=== PATIENT | male | born 1945 | race Caucasian/White ===

== ENCOUNTER → 2016-12-08 | Outpatient (CLI) | payer SELFPAY ==
[2016-12-08 11:00] LABS: HEMOGLOBIN A1C 7.72 % (4.2-6.0); MEAN BLOOD GLUCOSE (CALC) 171.076 mg/dL
[2016-12-10 08:51] LABS: PSAFREE 2.2 ng/mL (()); PSATOTAL 7.5 ng/mL (<=6.5)
== END ==
LOC: MOB LAB 09:56
DX: E11.9 Type 2 diabetes mellitus without complications (principal); Z79.4 Long term (current) use of insulin; R97.20 Elevated prostate specific antigen [PSA]
CPT/HCPCS: 36415; 83036; 84153; 84154

== ENCOUNTER → 2017-04-10 | Outpatient (CLI) | payer SELFPAY ==
[2017-04-10 12:41] LABS: BUN/CREATININE RATIO 18.33 (6-20); CALCIUM 9.5 mg/dL (8.7-10.7)
[2017-04-10 12:42] LABS: HEMOGLOBIN A1C 8.29 % (4.2-6.0)
== END ==
LOC: MOB LAB 11:15
DX: E11.9 Type 2 diabetes mellitus without complications (principal); Z79.4 Long term (current) use of insulin; I10 Essential (primary) hypertension; R97.20 Elevated prostate specific antigen [PSA]
CPT/HCPCS: 36415; 80048; 83036; 84153

== ENCOUNTER 2017-05-04 15:37 | Observation (INO) | payer OTHER ==
[2017-05-04] MEDS ORDERED: NORMAL SALINE 10 ML SYRINGE FLUSH IVP PRN ×2 (16:14→20:04)
[2017-05-04 16:33] LABS: VENOUS PH 7.41 (7.32-7.42)
[2017-05-04] MEDS ORDERED: Rivaroxaban Tab 10 MG TAB PO ONE (19:27)
--- NOTE | 2017-05-04 19:37 | PDOC ---
Chest Pain HPI - General Chief Complaint: Chest Pain Stated Complaint: chest pain and dyspnea Date Seen by Provider: 05/04/17 Time Seen by Provider: 15:55 Source: Patient, RN/MD Exam Limitations: POSITIVE: No limitations Treatment Prior to Arrival: REPORTS: None Nurse's Notes Reviewed & Considered: Yes - History of Present Illness Initial Comments: The patient is a 74-year-old male. Patient complains of an approximately 24 hour history of dyspnea and pleuritic chest pain, mainly over the lower anterior thorax and the right subscapular area. He was seen initially today at the clinic. The physician seeing him there did a CBC, which was normal. He also performed a CMP which is normal except for glucose of 161. D-dimer was elevated at 4.04. BNP was elevated at 1480 and CRP was 26.4. Cardiac enzymes were normal. Electrocardiogram showed a Q-wave in lead 3 and a normal sinus rhythm. Chest x-ray was done, which I reviewed and, on my interpretation, the patient may have atelectasis versus infiltrate versus pulmonary infarction in the right lower lung. Patient was sent here for further evaluation and disposition. Past medical history is significant in that he had a deep vein thrombosis of the right leg in 2013 and was on Zarrella toe up until 22 April. The Xarelto was discontinued at that time because patient was scheduled for a prostate biopsy this coming Thursday. Patient states he had a myocardial infarction in 2012 and does have a history of type II diabetes mellitus, hypertension and hyperlipidemia. Body Location Affected: REPORTS: Chest Timing: REPORTS: Abrupt, Constant Duration: >24 hours (Approximately 24 hours) Severity: Moderate Persistent/Worse since (date): 05/03/17 Persistent/Worse since (time): 12:00 Context: REPORTS: Rest Quality: REPORTS: "Pain" (Pleuritic pain with inspiration) Radiation: REPORTS: None Associated Symptoms: REPORTS: Shortness of Breath, Palpitations Modifying Factors: improves with: Deep breathing (Exacerbated by inspiration) Similar Symptoms Previously: No Recently seen/treated/hospitalized: Yes (as above) Any Prior Injuries Related to Current Complaint?: No - Patient Home Medications Home Medications: Home Medications Hydrochlorothiazide 25 mg PO DAILY 05/23/15 Aspirin 81 mg PO DAILY #30 tab.chew 05/26/15 Tadalafil [Cialis] 5 mg PO DAILY #30 tablet 05/26/15 Cetirizine HCl 1 tab PO QD PRN #90 tab 10/25/15 Chlorthalidone 1 tab PO QD #90 tab 10/25/15 Gluc/MSM/C/[place] [Joint Support Complex Softgel] 3 cap PO QD #90 cap 10/25/15 Metformin HCl 1 tab PO BID #180 tab 10/25/15 Allopurinol 1 tab PO QD #90 tab 10/08/16 Fluticasone Propionate [Flonase Allergy Relief] 2 spr SHANTI DAILY PRN #1 spr 01/19 Lisinopril 1 tab PO QD #90 tab 10/08/16 Rivaroxaban [Xarelto] 2 tab PO QD #60 tab 02/05/17 Insulin Detemir [Levemir Flextouch] 28 unit SUBCUT QHS #5 unit 05/01/17 - Patient Allergies Allergies/Adverse Reactions: Allergies Allergy/AdvReac Type Severity Reaction Status Date / Time No Known Allergies Allergy Verified 05/04/17 15:57 Past Medical History - heen HEENT History: Other (please comment) Additional HEENT History: WEARS GLASSES Cardiovascular History: Hypertension, Hyperlipidemia Respiratory History: Sleep Apnea, Home CPAP Use Gastrointestinal History: Denies History Genitourinary History: Incontinence Endocrine History: Type 2 Diabetes (oral), Type 2 Diabetes (insulin) Musculoskeletal History: Other (please comment) 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) Additional Musculoskeletal History: LEFT ANKLE FRACTURE Neurological History: Denies History Blood Disorders: Denies History Additional Blood Disorders History: DVT 2013 Psychiatric History: Denies History History of Sexually Transmitted Diseases: No Cancer History: Denies History In Past Year Been Physically Harmed or Verbally Threatened: No History of MDRO: Yes History of Other Communicable Diseases: No Tobacco Use: Former Smoker Alcohol Use: None Substance Use Type: None Previous Surgical History: Yes Type / Date of Surgery: NASAL TURBINATE REMOVAL, RIGHT TESTICULAR HERNIA WITH MESH REPAIR, HEART CATH WITHOUT STENTING Anesthesia Reactions: No Malignant Hyperthermia: No Significant Family History: No pertinent family hx Past Medical History Reviewed: Reviewed - No Changes ROS - Limitations ROS Limitations: No Limitations Constitution: REPORTS: Denies Symptoms Cardiovascular: REPORTS: Chest Pain (Pleuritic as above) Respiratory: REPORTS: Hurts To Breathe, Shortness Of Breath Neurological: REPORTS: Denies Neuro Symptoms Gastrointestinal: REPORTS: Denies GI Symptoms Endocrine: REPORTS: Denies Symptoms Musculoskeletal: REPORTS: Denies MS Symptoms Genitourinary: REPORTS: Denies Symptoms Eyes: REPORTS: Denies Symptoms ENT: REPORTS: Denies Symptoms Skin: REPORTS: Denies Skin Symptoms Lympathic: REPORTS: Denies Lympathic Symptoms Immunologic: POSITIVE: Denies Symptoms Psychiatric: POSITIVE: Denies Psych Symptoms Chest Pain PE - General Appearance General Appearance: REPORTS: Alert, Cooperative, No Acute Distress, No Evidence of Trauma - HEENT HEENT: POSITIVE: Head Inspection Nml, Eyes Inspection Nml, Ears Inspection Nml, Nose Inspection Nml, Oral/Dental Inspect. Nml, Pharynx Inspect. Nml, PERRL, EOMI - Neck Neck: REPORTS: Normal Inspection, No Carotid Bruit - Respiratory Respiratory: REPORTS: Breath Sounds Normal, See Diagram, Other (Pain with inspiration) - Cardiovascular Cardiovascular: REPORTS: Regular Rate and Rhythm, Heart Sounds Normal, Equal Pulses, Strong Pulses, No Murmur, No Gallop, No Friction Rub, No JVD Peripheral Pulses: Radial (R): 2+, Radial (L): 2+ - Abdomen Abdomen: Soft: (All Quadrants), Normal Bowel Sounds: (All Quadrants), Denies Tenderness: (All Quadrants), No Splenomegaly: (All Quadrants), No Hepatomegaly: (All Quadrants), No Guarding: (All Quadrants), No Rebound: (All Quadrants), No Palpable Pulse: (All Quadrants), No Palpabale Mass: (All Quadrants), No Distention: (All Quadrants), No Rigidity: (All Quadrants) - Skin Skin: REPORTS: Intact, Normal For Race, Warm, Dry, No Rash - Extremities Extremity: Non-Tender: (All Extremities), Normal ROM: (All Extremities), Normal Inspection: (All Extremities) - Neurological / Psychological Neurological: POSITIVE: 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, 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, 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 As Tested, Motor Normal, Sensation Normal Images - Complete Complete: 1 - Area of pleuritic pain 2 - Pleuritic pain Chest Pain Progress - Results Reviewed by me Xrays/CTs/US Reviewed by me: Yes Discussed with Radiologist: Yes Radiology Findings: CTA of chest read by radiologist as showing multiple bilateral pulmonary emboli Lab Results Reviewed: Yes (repeat troponin negative) Lab Results:: Laboratory Results 05/04/17 05/04/17 Range/Units 16:27 16:30 VBG pH 7.41 (7.32-7.42) VBG pCO2 38 L (45-55) mmHg VBG HCO3 24 (22-26) mmol/L VBG Base Excess 0 (-2-2) MMOL/L Lactic Acid 1.2 (0.70-2.10) MMOL/L Troponin I < 0.012 (< 0.040) ng/mL EKG Interpreted/Reviewed By Me:: Yes (Q-wave in lead 3) EKG Interpretation:: POSITIVE: Normal Sinus Rhythm, Normal Rate, Normal Intervals, Normal [place], Normal ST/T. NEGATIVE: Normal QRS (Q-wave in lead 3) - Patient's Progress Pain Medication Addressed: POSITIVE: Yes (Ketorolac 30 mg IV) School/Work Release Addressed: POSITIVE: Not Applicable Re-Examine Time: 19:10 Re-Examine Comment: Diagnosis discussed with hospitalist, Dr. Arora Status: POSITIVE: Unchanged, Re-Examined Quality Measure Initiative: CP/AMI: POSITIVE: EKG, ASA - Consult Consult (If Yes, Name of Consulting MD & Time Called): Yes (Dr. Arora, hospitalist, 1924) Consulting MD will see pt:: POSITIVE: [facility] Admit Counseled: POSITIVE: Patient, RE: Lab Results, RE: Radiology Results, RE: DX, RE : Need for F/U Patient Care Time - Estimated PCT Patient Care Time (In Minutes): 60 Vital Signs - Recent Vital Signs Vital Signs: Vital Signs (Last 8 hours) Temp Pulse Pulse Resp BP Pulse Ox 05/04/17 15:58 97.7 F 73 24 136/77 93 05/04/17 15:37 89 - VS Reviewed Vital Signs Reviewed: Yes Discharge Clinical Impression: Pulmonary embolism Discharge Disposition: Admit to Inpatient Date Decision to Admit to Inpatient: 05/04/17 Time Decision to Admit to Inpatient: 19:25
[2017-05-04] MEDS ORDERED: BISACODYL 10 MG SUPPOSITORY RECTAL PRN (20:04)
[2017-05-04] MEDS ORDERED: LIDOCAINE W/ SODIUM BICARB 0.5 ML SYR SUBD PRN (20:04)
[2017-05-04] MEDS ORDERED: ONDANSETRON 4 MG/2 ML VIAL IVP PRN (20:04)
[2017-05-04] MEDS: Insulin Detemir 300unit/3ml Flexpen SUBCUT SCH (21:51)
[2017-05-04] MEDS: Rivaroxaban Tab 10 MG TAB PO SCH (22:42)
--- NOTE | 2017-05-05 01:10 | PDOC ---
History and Physical - History of Present Illness History of Present Illness: This very nice 74-year-old gentleman who comes to the ER complaining of the 24- hour history of chest pain pleuritic and pleuritic chest pain especially when he takes a deep breath. He was seen earlier in the clinic and had some mild blood work done on the outpatient clinic in his d-dimer was elevated at that time he also has a history of DVT in the right lower extremity in 2013 and was on xarelto until March the patient was scheduled for prostate biopsy this coming Thursday. Thursday [place] in 2012 and has a history of diabetes hypertension and high cholesterol CT scan reveals pulmonary emboli patient will be admitted for further evaluation and monitoring he was also started on his previous anticoagulation med Past Medical History Medical History: 1. Diabetes mellitus type II, no known complications2. Hypertension3. Hypercholesterolemia4. Osteoarthritis, primarily in the knees5. Morbid obesity with body mass index greater than 40 kg permeter squared6. History of DVT in June,7. History of tobacco abuse.8. Colon Polyps in 2011, Surgical History: 1. Colonoscopy as mentioned2. Ruptured hernia on the left side (groin) with repair when he was young3. Nasal turbinates surgery Pertinent Family History: Negative for DVT and coronary artery disease and testicular cancer Past Social History: Smoked until age 33. for 35 years. Has 9 children. 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 Does not drink. Tobacco Use: Former Smoker Substance Use Type: None Medication / Allergies Home Medications: Home Medications Medication Instructions Recorded Confirmed Type Hydrochlorothiazide 25 mg PO DAILY 05/23/15 06/13/15 History Aspirin 81 mg PO DAILY #30 tab.chew 05/26/15 06/13/15 Rx Tadalafil [Cialis] 5 mg PO DAILY #30 tablet 05/26/15 06/13/15 Rx Cetirizine HCl 1 tab PO QD PRN #90 tab 10/25/15 Clinic Chlorthalidone 1 tab PO QD #90 tab 10/25/15 Clinic Gluc/MSM/C/[place] 3 cap PO QD #90 cap 10/25/15 Clinic [Joint Support Complex Softgel] Metformin HCl 1 tab PO BID #180 tab 10/25/15 Clinic Allopurinol 1 tab PO QD #90 tab 10/08/16 Clinic Fluticasone Propionate [Flonase 2 spr SHANTI DAILY PRN #1 spr 10/08/16 Clinic Allergy Relief] Lisinopril 1 tab PO QD #90 tab 10/08/16 [facility] Rivaroxaban [Xarelto] 2 tab PO QD #60 tab 02/05/17 [facility] Insulin Detemir [Levemir Flextouch] 28 unit SUBCUT QHS #5 unit 05/01/17 [facility] Allergies/Adverse Reactions: Allergies Allergy/AdvReac Type Severity Reaction Status Date / Time No Known Allergies Allergy Verified 05/04/17 15:57 Review of Systems - Review of Systems All Systems: Reviewed & No Additional Complaints Except as Stated - Respiratory Respiratory: REPORTS: Cough, Pleuritic Pain - Cardiovascular Cardiovascular: REPORTS: Chest Pain - Gastrointestinal Gastrointestinal / Abdominal: DENIES: Negative System Review, Nausea, Vomiting, Diarrhea, Constipation, Abdominal Pain, Bloody Stool, Poor Appetite, Heartburn, Regurgitation, Bloating, Lactose Intolerance, Melena, Bright Red Blood Per Rectum, Other, See HPI Exam - Vitals Vital Signs: Vital Signs Temperature 97.2 F Temperature Source Temporal Artery Scan Pulse Rate [Pulse Oximeter] 87 Pulse Rate 96 Respiratory Rate 18 Blood Pressure [Right Arm] 172/90 Pulse Ox 96 Oxygen Flow Rate 3 Oxygen Delivery Method Nasal Cannula Height 6 ft Weight 140.784 kg - General General Appearance: POSITIVE: No Acute Distress, Cooperative - Head Head Exam: POSITIVE: Normal Inspection, Normocephalic, Atraumatic - Eye Eye Exam: POSITIVE: Normal Appearance - Neck Neck Exam: POSITIVE: Normal Inspection - Respiratory Respiratory Exam: POSITIVE: Clear to Auscultation - Bilaterally, Breathing Non Labored - Cardiovascular Cardiovascular Exam: POSITIVE: RRR, No Murmur, No Clicks - GI/Abdominal GI/Abdominal Exam: POSITIVE: Normal Bowel Sounds, Non Distended, Soft - Extremities Extremities Exam: POSITIVE: No Clubbing Present, No Edema Present - Neurological Neurological Exam: POSITIVE: Alert, Oriented x 3, No Facial Droop, Speech Intact / Clear Results - Labs Labs - Last 24 Hours: Laboratory Results 05/04/17 Range/Units 20:15 Troponin I < 0.012 (< 0.040) ng/mL Assessment and Plan - Patient Problems (1) Pulmonary emboli Current Visit: Yes Status: Acute (2) Coronary artery disease Current Visit: No Status: Acute (3) History of DVT (deep vein thrombosis) Current Visit: No Status: Acute - Assessment / Plan Additional Assessment/Plan Details: Admit patient to telemetry restart xarelto echo in a.m.
[2017-05-05] MEDS: BISACODYL 5 MG TABLET PO PRN ×2 (02:23→14:12)
--- NOTE | 2017-05-05 06:32 | DI ---
CT CTA CHEST NONCORONARY W/WO,05/04/2017 4:11 PM: Clinical History: Chest pain and elevated d-dimer. Previous Exam: June 23, 2014 Findings: Multiple helically acquired CT images are obtained through the chest following a CT angiogram protoco l, and demonstrate a filling defect within the lower lobe artery. There is also some filling defect i nvolving the upper lobe artery on the right. There are also some filling defects within the left lowe r pulmonary arteries. There is a density in the right lung base worrisome for an infarct. There is al so a right pleural effusion. The upper abdomen is unremarkable. Diffuse degenerative changes of the thoracic spine are seen. Mild peripheral vascular disease of the aorta is unremarkable. Impression: Multiple bilateral pulmonary emboli.
[2017-05-05] MEDS: metFORMIN 500 MG TABLET PO SCH ×2 (07:09→17:34)
[2017-05-05] MEDS: LISINOPRIL 20 MG TABLET PO SCH (08:26)
[2017-05-05] MEDS: ALLOPURINOL 300 MG TABLET PO SCH (08:27)
[2017-05-05] MEDS: Rivaroxaban Tab 10 MG TAB PO SCH ×2 (08:27→21:43)
[2017-05-05] MEDS: CHLORTHALIDONE 50 MG TABLET PO SCH (08:28)
[2017-05-05] MEDS: ASPIRIN 81 MG (BABY) CHEWABLE TABLET PO SCH (08:28)
[2017-05-05] MEDS ORDERED: HYDROCHLOROTHIAZIDE 25 MG TABLET PO SCH (09:00)
[2017-05-05 09:47] LABS: BUN/CREATININE RATIO 18.18 (6-20); CALCIUM 8.7 mg/dL (8.7-10.7); SERUM ALBUMIN 3.2 g/dL (3.5-4.8)
[2017-05-05 09:51] LABS: BASOPHILS # (AUTO) 0.02 10*3/UL; BASOPHILS % (AUTO) 0.2 % (0-1); EOSINOPHILS # (AUTO) 0.04 10*3/UL; EOSINOPHILS % (AUTO) 0.4 % (0-8); HEMATOCRIT 39.5 % (42.0-52.0); HEMOGLOBIN 13.2 g/dL (14.0-18.0); LYMPHOCYTES # (AUTO) 0.47 10*3/uL; MEAN CORPUSCULAR HEMOGLOBIN 26.9 PG (27-31); MEAN CORPUSCULAR HGB CONC 33.4 g/dL (33-37); MEAN CORPUSCULAR VOLUME 80.6 FL (80-90); MEAN PLATELET VOLUME 10.3 FL (7.4-12.2); MONOCYTES # (AUTO) 0.97 10*3/UL (0.3-0.8); MONOCYTES % (AUTO) 10.2 % (5-15); NEUTROPHILS # (AUTO) 7.96 10*3/UL; NEUTROPHILS % (AUTO) 83.9 % (50-80); PLATELET MORPHOLOGY COMMENT NORMAL MORPHOLOGY (NORM); RBC MORPHOLOGY COMMENT NORMAL MORPHOLOGY (NORM); WBC MORPHOLOGY COMMENT NORMAL MORPHOLOGY (NORM)
--- NOTE | 2017-05-05 09:57 | DI ---
US UP/LOW EXTREMITY VEINS B/L,05/05/2017 8:20 AM: Clinical History: The deep venous thrombosis. Previous Exam: None at this facility. Findings: Evaluation of the left lower extremity demonstrates complete coaptation upon graded compression throu ghout the left lower extremity deep veins. There is no echogenic thrombus within the left lower extremity. The right lower extremity demonstrates noncompressibility of the right common femoral, right superfic ial femoral and right popliteal veins with some persisting flow. The greater saphenous vein demonstra vj complete coaptation throughout. Impression: Incompletely occlusive thrombus of the right common femoral, superficial femoral and popliteal veins.
[2017-05-05] MEDS: oxyCODONE-ACETAMINOPHEN 5-325 TAB PO PRN ×4 (11:15→21:52)
--- NOTE | 2017-05-05 16:16 | PT.PROG ---
Progress Note Progress Note: Nursing consulted with Dr. Rizvi about applying compression stockings between 20 and 30 mmHg due to therapy not carrying 30-[address] Rizvi did not accept 20- 30 mmHg stocking, therefore discussed with patient option of ordering stockings himself to decrease financial burden. then Measured patient to find size for stocking to order.
[2017-05-05] MEDS: Sodium Chloride 0.9% 1,000 ML IV SCH (18:20)
[2017-05-05] MEDS ORDERED: Sodium Chloride 0.9% 1,000 ML ONE (18:37)
[2017-05-05 20:33] VITALS: RESP 20
[2017-05-05] MEDS: Insulin Detemir 300unit/3ml Flexpen SUBCUT SCH (21:43)
[2017-05-06] MEDS: oxyCODONE-ACETAMINOPHEN 5-325 TAB PO PRN ×2 (01:00→05:15)
[2017-05-06 05:22] LABS: BUN/CREATININE RATIO 20.9 (6-20); CALCIUM 8.9 mg/dL (8.7-10.7); SERUM ALBUMIN 3.1 g/dL (3.5-4.8)
[2017-05-06] MEDS: metFORMIN 500 MG TABLET PO SCH (06:25)
[2017-05-06 08:14] VITALS: TEMP 97
[2017-05-06] MEDS: Rivaroxaban Tab 10 MG TAB PO SCH (08:45)
[2017-05-06] MEDS: ALLOPURINOL 300 MG TABLET PO SCH (08:46)
[2017-05-06] MEDS: CHLORTHALIDONE 50 MG TABLET PO SCH (08:46)
[2017-05-06] MEDS: ASPIRIN 81 MG (BABY) CHEWABLE TABLET PO SCH (08:46)
[2017-05-06] MEDS: LISINOPRIL 20 MG TABLET PO SCH (08:46)
[2017-05-06] MEDS: Sodium Chloride 0.9% 1,000 ML IV SCH (11:52)
--- NOTE | 2017-05-06 12:50 | DCSUMMARY ---
Hospitalization Summary Hospital Course: Final Discharge Diagnosis: Current Visit Problems Problem Status Priority Diagnosed Code Pulmonary emboli Acute I26.99 dvt Diagnostic Data, Laboratory Data, and Procedures of Signifigance: Laboratory Results 05/04/17 05/04/17 05/04/17 Range/Units 16:27 16:30 20:15 WBC (4.8-10.8) 10^3/uL RBC (4.70-6.10) 10^6/uL Hgb (14.0-18.0) g/dL Hct (42.0-52.0) % MCV (80-90) FL MCH (27-31) PG MCHC (33-37) g/dL RDW Std Deviation (39-50) fL RDW Coeff of [place] (11.5-14.5) % Plt Count (140-350) 10*3/uL MPV (7.4-12.2) FL Immature Gran % (Auto) (0-5) % Neut % (Auto) (50-80) % Lymph % (Auto) (10-50) % [place] % (Auto) (5-15) % Eos % (Auto) (0-8) % Baso % (Auto) (0-1) % Immature Gran # (Auto) 10*3/UL Neut # (Auto) 10*3/UL Lymph # (Auto) 10*3/uL [place] # (Auto) (0.3-0.8) 10*3/UL Eos # (Auto) 10*3/UL Baso # (Auto) 10*3/UL WBC Morphology Comment (NORM) Plt Morphology Comment (NORM) RBC Morph Comment (NORM) VBG pH 7.41 (7.32-7.42) VBG pCO2 38 L (45-55) mmHg VBG HCO3 24 (22-26) mmol/L VBG Base Excess 0 (-2-2) MMOL/L Sodium (135-145) meq/L Potassium (3.8-5.2) meq/L Chloride (98-112) meq/L Carbon Dioxide (23-33) meq/L Anion Gap (5-20) BUN (7-22) mg/dL Creatinine (0.70-1.50) mg/dL Estimated GFR (>60 ml/min/1.73m(2)) BUN/Creatinine Ratio (6-20) Glucose (78-110) mg/dL Calculated Osmolality (267-292) mOsm/kg Lactic Acid 1.2 (0.70-2.10) MMOL/L Calcium (8.7-10.7) mg/dL Magnesium (1.6-2.4) mg/dL Total Bilirubin (0.3-1.2) mg/dL AST (21-57) IU/L ALT (21-72) IU/L Alkaline Phosphatase (38-126) IU/L Troponin I < 0.012 < 0.012 (< 0.040) ng/mL Total Protein (6.1-8.0) g/dL Albumin (3.5-4.8) g/dL Globulin (2.50-4.10) g/dL Albumin/Globulin Ratio (1.3-2.0) mg/g 05/05/17 05/06/17 Range/Units 09:25 04:13 WBC 9.49 (4.8-10.8) 10^3/uL RBC 4.90 (4.70-6.10) 10^6/uL Hgb 13.2 L (14.0-18.0) g/dL Hct 39.5 L (42.0-52.0) % MCV 80.6 (80-90) FL MCH 26.9 L (27-31) PG MCHC 33.4 (33-37) g/dL RDW Std Deviation 41.7 (39-50) fL RDW Coeff of [place] 14.3 (11.5-14.5) % Plt Count 267 (140-350) 10*3/uL MPV 10.3 (7.4-12.2) FL Immature Gran % (Auto) 0.3 (0-5) % Neut % (Auto) 83.9 H (50-80) % Lymph % (Auto) 5.0 L (10-50) % [place] % (Auto) 10.2 (5-15) % Eos % (Auto) 0.4 (0-8) % Baso % (Auto) 0.2 (0-1) % Immature Gran # (Auto) 0.03 10*3/UL Neut # (Auto) 7.96 10*3/UL Lymph # (Auto) 0.47 10*3/uL [place] # (Auto) 0.97 H (0.3-0.8) 10*3/UL Eos # (Auto) 0.04 10*3/UL Baso # (Auto) 0.02 10*3/UL WBC Morphology Comment Normal morphology (NORM) Plt Morphology Comment Normal morphology (NORM) RBC Morph Comment Normal morphology (NORM) VBG pH (7.32-7.42) VBG pCO2 (45-55) mmHg VBG HCO3 (22-26) mmol/L VBG Base Excess (-2-2) MMOL/L Sodium 129 L 129 L (135-145) meq/L Potassium 4.3 3.9 (3.8-5.2) meq/L Chloride 98 98 (98-112) meq/L Carbon Dioxide 22 L 22 L (23-33) meq/L Anion Gap 9 9 (5-20) BUN 20 23 H (7-22) mg/dL Creatinine 1.1 1.1 (0.70-1.50) mg/dL Estimated GFR (>60 ml/min/1.73m(2)) BUN/Creatinine Ratio 18.18 20.90 H (6-20) Glucose 214 H 140 H (78-110) mg/dL Calculated Osmolality 276.0 273.0 (267-292) mOsm/kg Lactic Acid (0.70-2.10) MMOL/L Calcium 8.7 8.9 (8.7-10.7) mg/dL Magnesium 2.0 (1.6-2.4) mg/dL Total Bilirubin 1.1 0.7 (0.3-1.2) mg/dL AST 40 32 (21-57) IU/L ALT 47 55 (21-72) IU/L Alkaline Phosphatase 114 116 (38-126) IU/L Troponin I (< 0.040) ng/mL Total Protein 6.6 6.5 (6.1-8.0) g/dL Albumin 3.2 L 3.1 L (3.5-4.8) g/dL Globulin 3.4 3.4 (2.50-4.10) g/dL Albumin/Globulin Ratio 0.90 L 0.90 L (1.3-2.0) mg/g History and Physical pertinent to Admission: Course of Hospitalization: This very nice 72-year-old gentleman with past medical history significant for diabetes and previous DVT patient is been on the anticoagulation which she has stopped this some weeks prior secondary to prostate biopsy next week he had sudden shortness of breath and was seen in the ER CT scan of his chest the revealed bilateral pulmonary emboli and lower extremity ultrasound revealed lower extremity DVT. I did discuss the case with interventional radiology Dr. Lewis which recommended compression stockings between 30 and 40 mmHg knee-high and that no need to do local anticoagulation to break up the clot On the date of discharge, the patient was examined: Gen.: No acute distress, alert, nontoxic Heart: Regular rate and rhythm, no murmurs, clicks, gallops, or rubs Lungs: Clear to auscultation bilaterally, breathing is nonlabored Abdomen/GI: Normal tones on auscultation, soft, nontender, nondistended Musculoskeletal/extremities: No clubbing, cyanosis, or edema Vitals reviewed and are listed below Vital Signs (24 hrs) Temp Pulse Pulse Resp BP Pulse Ox 05/06/17 08:13 97 F 61 20 126/68 94 05/06/17 04:07 97.7 F 70 20 120/64 92 05/06/17 01:00 76 20 146/76 94 05/05/17 20:32 97.4 F 76 20 134/73 95 05/05/17 19:00 75 76 05/05/17 16:24 97.2 F 64 19 132/91 96 05/05/17 15:00 70 Assessment and Plan: 1. As per discharge assessments above 2. Disposition: Home 3. Condition on discharge, stable and improved. 4. Diet: regular diet 5. Activities: resume normal activities 6. Follow-Up: 1. PCP follow-up with Dr. Arita I did discuss the case with him 2. 7. Medications at the Time of Discharge: Home Medications Medication Instructions Recorded Confirmed Type Hydrochlorothiazide 25 mg PO DAILY 05/23/15 06/13/15 History Aspirin 81 mg PO DAILY #30 tab.chew 05/26/15 06/13/15 Rx Tadalafil [Cialis] 5 mg PO DAILY #30 tablet 05/26/15 06/13/15 Rx Cetirizine HCl 1 tab PO QD PRN #90 tab 10/25/15 Clinic Chlorthalidone 1 tab PO QD #90 tab 10/25/15 Clinic Gluc/MSM/C/[place] 3 cap PO QD #90 cap 10/25/15 Clinic [Joint Support Complex Softgel] Metformin HCl 1 tab PO BID #180 tab 10/25/15 Clinic Allopurinol 1 tab PO QD #90 tab 10/08/16 Clinic Fluticasone Propionate [Flonase 2 spr SHANTI DAILY PRN #1 spr 10/08/16 Clinic Allergy Relief] Lisinopril 1 tab PO QD #90 tab 10/08/16 Clinic Rivaroxaban [Xarelto] 2 tab PO QD #60 tab 02/05/17 Clinic Insulin Detemir [Levemir Flextouch] 28 unit SUBCUT QHS #5 unit 05/01/17 Clinic 8. Time, care, counseling and coordination of care for this discharge is greater than 30 minutes. Exam - Vitals Vital Signs: Vital Signs Temperature 97 F Temperature Source Temporal Artery Scan Pulse Rate [Pulse Oximeter] 61 Pulse Rate 75 Respiratory Rate 20 Blood Pressure [Right Arm] 126/68 Pulse Ox 94 Oxygen Flow Rate 1 Oxygen Delivery Method Room Air Height 6 ft Weight 139.111 kg Patient Problems - Patient Problem List (1) Pulmonary emboli Current Visit: Yes Status: Acute (2) Coronary artery disease Current Visit: No Status: Acute (3) History of DVT (deep vein thrombosis) Current Visit: No Status: Acute
== END 2017-05-06 12:58 | disposition home or self-care (01) ==
LOC: ER 15:37 → MED/SURG 19:23
PROVIDERS: ADMIT Family Medicine; ATTEND Internal Medicine
DX: I26.99 Other pulmonary embolism without acute cor pulmonale (principal); I25.10 Atherosclerotic heart disease of native coronary artery without angina pectoris; Z86.718 Personal history of other venous thrombosis and embolism
CPT/HCPCS: 36415 ×4; 71275; 80053 ×2; 82803; 83605; 83735; 84484; 85025; 87040; 93970; 97761; 99284 ×2; J1815; J7030

== ENCOUNTER → 2017-05-04 | Outpatient (CLI) | payer OTHER ==
--- NOTE | 2017-05-04 14:46 | EKG ---
[address] [address] Measurements Intervals [place] Rate: 89 P: 38 MA: 170 QRS: 63 QRSD: 106 T: 55 QT: 393 QTc: 439 Interpretive Statements SINUS RHYTHM WITH FREQUENT VENTRICULAR PREMATURE COMPLEXES POSSIBLE INFERIOR MYOCARDIAL INFARCTION PROBABLY OLD ABNORMAL RHYTHM ECG Compared to ECG 05/24/2015 07:51:40 Ventricular premature complex(es) now present Myocardial infarct finding still present Electronically Signed On 05-04-17 15:08:04 MDT by Remy Segura [email or web address]
[2017-05-04 15:01] LABS: BUN/CREATININE RATIO 14.16 (6-20); CALCIUM 9.1 mg/dL (8.7-10.7)
[2017-05-04 15:02] LABS: SERUM ALBUMIN 3.7 g/dL (3.5-4.8)
[2017-05-04 15:15] LABS: CREATINE KINASE MB < 0.22 NG/ML (0.00-5.00); TROPONIN I < 0.012 ng/mL (< 0.040)
[2017-05-04 15:32] LABS: BASOPHILS % (AUTO) 0.4 % (0-1); EOSINOPHILS % (AUTO) 0 % (0-8); HEMATOCRIT 43.8 % (42.0-52.0); HEMOGLOBIN 14.4 g/dL (14.0-18.0); MEAN CORPUSCULAR HEMOGLOBIN 26.4 PG (27-31); MEAN CORPUSCULAR HGB CONC 32.9 g/dL (33-37); MEAN CORPUSCULAR VOLUME 80.4 FL (80-90); MEAN PLATELET VOLUME 10.4 FL (7.4-12.2); MONOCYTES % (AUTO) 12.1 % (5-15); NEUTROPHILS % (AUTO) 77.4 % (50-80); RED BLOOD COUNT 5.45 10^6/uL (4.70-6.10)
[2017-05-04 15:33] LABS: BASOPHILS # (AUTO) 0.04 10*3/UL; EOSINOPHILS # (AUTO) 0 10*3/UL; LYMPHOCYTES # (AUTO) 0.93 10*3/uL; MONOCYTES # (AUTO) 1.31 10*3/UL (0.3-0.8); NEUTROPHILS # (AUTO) 7.88 10*3/UL; PLATELET MORPHOLOGY COMMENT NORMAL MORPHOLOGY (NORM); RBC MORPHOLOGY COMMENT NORMAL MORPHOLOGY (NORM); WBC MORPHOLOGY COMMENT NORMAL MORPHOLOGY (NORM)
[2017-05-04 15:41] LABS: C-REACTIVE PROTEIN 26.4 mg/dL (0.0-0.9)
--- NOTE | 2017-05-05 06:32 | DI ---
XR CXR 2VW PA/LAT,05/04/2017 2:15 PM: Clinical History: Shortness of breath Previous Exam: May 25, 2015 Findings: A single frontal radiograph of the chest is obtained, and demonstrates density within the right lung base with some blunting of the right costophrenic angle. The cardiomediastinum and bony thorax are unremarkable and stable. Impression: New density within the right lower lobe most likely representing a right lower lobe pneumonia and sma ll right pleural effusion. Recommend followup imaging after treatment to document resolution.
== END ==
LOC: MOB LAB 14:20
PROVIDERS: ATTEND Physician Assistant
DX: R07.81 Pleurodynia (principal); R06.02 Shortness of breath; I10 Essential (primary) hypertension; J18.9 Pneumonia, unspecified organism; J90 Pleural effusion, not elsewhere classified; R79.89 Other specified abnormal findings of blood chemistry
CPT/HCPCS: 36415; 71020; 80053; 82553; 83880; 84484; 85025; 85379; 86140; 93005; 93010

== ENCOUNTER 2017-05-26 18:38 | Emergency (ER) | payer OTHER ==
[2017-05-26] MEDS ORDERED: MORPHINE SULFATE 2 MG/1 ML IVP ONE (18:45)
[2017-05-26] MEDS ORDERED: Sodium Chloride 0.9% 1,000 ML PRIMARY IV ONE (18:45)
[2017-05-26] MEDS ORDERED: ALBUTEROL SULFATE 2.5 MG/3 ML NEB ONE (18:45)
[2017-05-26] MEDS ORDERED: ONDANSETRON 4 MG/2 ML VIAL IVP ONE (18:45)
--- NOTE | 2017-05-26 18:51 | EKG ---
[address] [address] Measurements Intervals [place] Rate: 113 P: 42 [place]: 184 QRS: 5 QRSD: 105 T: 23 QT: 310 QTc: 377 Interpretive Statements SINUS TACHYCARDIA WITH OCCASIONAL SUPRAVENTRICULAR PREMATURE COMPLEXES INFERIOR MYOCARDIAL INFARCTION PROBABLY OLD Compared to ECG 05/04/2017 14:46:53 Sinus rhythm no longer present Ventricular premature complex(es) no longer present Myocardial infarct finding still present Electronically Signed On 05-27-17 13:38:42 MDT by Remy Segura [email or web address]
--- NOTE | 2017-05-26 18:53 | PDOC ---
Dyspnea HPI - General Chief Complaint: Dyspnea Stated Complaint: SHORTNESS OF BREATH Date Seen by Provider: 05/26/17 Time Seen by Provider: 18:48 Source: POSITIVE: Patient Exam Limitations: POSITIVE: No limitations Treatment Prior to Arrival: REPORTS: None Nurse's Notes Reviewed & Considered: Yes EMS Report Reviewed & Considered: Verbal - History of Present Illness Initial Comments: Patient comes to the emergency department from the medical office building with shortness of breath. Patient has been having increasing shortness of breath for the last several days. This began when he took a deep breath and felt significant pain in his right chest and subsequently had shortness of breath. This shortness of breath has gotten worse in any movement now results in him being out of breath. He denies any fever chills or sweats, no headache, no nausea vomiting or diarrhea, he does have a cough and pleuritic-type chest pain upon respiration. He has been having a rapid heart rate. On 04 May patient had been diagnosed with a pulmonary embolism. He is presently on xaralto. He is also a diabetic and on metformin. Body Location Affected: REPORTS: Chest Timing: REPORTS: Constant Duration: Unknown Severity: Moderate Quality: REPORTS: Aching, Fullness Initiating Event: REPORTS: Exercise Context: REPORTS: Exertion Associated Symptoms: REPORTS: Sweating, Chest Discomfort, Chest Tightness, Painful Breathing, Ankle Swelling, Leg Swelling Similar Symptoms Previously: Yes Recently seen/treated/hospitalized: Yes Any Prior Injuries Related to Current Complaint?: No - Patient Home Medications Home Medications: Home Medications Hydrochlorothiazide 25 mg PO DAILY 05/23/15 Aspirin 81 mg PO DAILY #30 tab.chew 05/26/15 Tadalafil [Cialis] 5 mg PO DAILY #30 tablet 05/26/15 Cetirizine HCl 1 tab PO QD PRN #90 tab 10/25/15 Chlorthalidone 1 tab PO QD #90 tab 10/25/15 Gluc/MSM/C/[place] [Joint Support Complex Softgel] 3 cap PO QD #90 cap 10/25/15 Metformin HCl 1 tab PO BID #180 tab 10/25/15 Fluticasone Propionate [Flonase Allergy Relief] 2 spr SHANTI DAILY PRN #1 spr 01/19 Rivaroxaban [Xarelto] 2 tab PO QD #60 tab 02/05/17 Insulin Detemir [Levemir Flextouch] 28 unit SUBCUT QHS #5 unit 05/01/17 Allopurinol 0.5 tab PO QD #90 tab 05/11/17 Lisinopril 0.5 tab PO QD #90 tab 05/11/17 - Patient Allergies Allergies/Adverse Reactions: Allergies Allergy/AdvReac Type Severity Reaction Status Date / Time No Known Allergies Allergy Verified 05/26/17 19:10 Past Medical History - heen HEENT History: Other (please comment) Additional HEENT History: WEARS GLASSES Cardiovascular History: Hypertension, Previous MN, DVTs, Hyperlipidemia Additional Cardiovasular History: MN prior to 2002. 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) Additional Musculoskeletal History: LEFT ANKLE FRACTURE at 6 years old Neurological History: Migraines Blood Disorders: Clotting Disorders Additional Blood Disorders History: DVT 2013 Psychiatric History: Denies History History of Sexually Transmitted Diseases: No Cancer History: Denies History History of MDRO: No History of Other Communicable Diseases: No Alcohol Use: None Substance Use Type: None Previous Surgical History: Yes Type / Date of Surgery: NASAL TURBINATE REMOVAL, RIGHT TESTICULAR HERNIA WITH MESH REPAIR, HEART CATH WITHOUT STENTING Anesthesia Reactions: No Malignant Hyperthermia: No Significant Family History: No pertinent family hx ROS - Limitations ROS Limitations: No Limitations Constitution: REPORTS: Diaphoresis Cardiovascular: REPORTS: Chest Pain, Heart Racing Respiratory: REPORTS: Cough Non Productive, Shortness Of Breath Neurological: REPORTS: Denies Neuro Symptoms Gastrointestinal: REPORTS: Denies GI Symptoms Endocrine: REPORTS: Elevated Glucose Musculoskeletal: REPORTS: Denies MS Symptoms Genitourinary: REPORTS: Denies Symptoms Eyes: REPORTS: Denies Symptoms ENT: REPORTS: Denies Symptoms Skin: REPORTS: Denies Skin Symptoms Lympathic: REPORTS: Denies Lympathic Symptoms Immunologic: POSITIVE: Denies Symptoms Psychiatric: POSITIVE: Denies Psych Symptoms Dyspnea Physical Exam - General Appearance General Appearance: REPORTS: Alert, Cooperative, No Acute Distress, No Evidence of Trauma - HEENT HEENT: POSITIVE: Head Inspection Nml, Eyes Inspection Nml, Ears Inspection Nml, Nose Inspection Nml, Oral/Dental Inspect. Nml, Pharynx Inspect. Nml, PERRL, EOMI - Neck Neck: REPORTS: Normal Inspection - Respiratory Respiratory: REPORTS: No Respiratory Distress, Speaks Full Sentences, Wheezes, Decreased Air Movement - Cardiovascular Cardiovascular: REPORTS: Heart Sounds Normal, No Murmur, No Gallop, No Friction Rub, No JVD, Tachycardia - Abdomen Abdomen: Soft: (All Quadrants), Normal Bowel Sounds: (All Quadrants), Denies Tenderness: (All Quadrants), No Splenomegaly: (All Quadrants), No Hepatomegaly: (All Quadrants), No Guarding: (All Quadrants), No Rebound: (All Quadrants), No Palpable Pulse: (All Quadrants), No Palpabale Mass: (All Quadrants), No Distention: (All Quadrants), No Rigidity: (All Quadrants) - Skin Skin: REPORTS: Intact, Normal For Race, Warm, No Rash, Diaphoresis - Extremities Extremity: Non-Tender: (All Extremities), Normal ROM: (All Extremities), Edema / Swelling: (LLE), (RLE) (plus 3 edema) - Neurological / Psychological Neurological: 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, pick out hand Normal As Tested, Motor Normal, Sensation Normal, 5, 6 Dyspnea Progress - Results Reviewed by me Xrays/CTs/US Reviewed by me: Yes Discussed with Radiologist: Yes Lab Results Reviewed: Yes Lab Results:: Laboratory Results 05/26/17 05/26/17 Range/Units 19:00 19:05 WBC 11.80 H (4.8-10.8) 10^3/uL RBC 5.13 (4.70-6.10) 10^6/uL Hgb 13.3 L (14.0-18.0) g/dL Hct 40.8 L (42.0-52.0) % MCV 79.5 L (80-90) FL MCH 25.9 L (27-31) PG MCHC 32.6 L (33-37) g/dL RDW Std Deviation 41.9 (39-50) fL RDW Coeff of [place] 14.6 H (11.5-14.5) % Plt Count 520 H (140-350) 10*3/uL MPV 9.6 (7.4-12.2) FL Immature Gran % (Auto) 0.4 (0-5) % Neut % (Auto) 77.4 (50-80) % Lymph % (Auto) 9.6 L (10-50) % [place] % (Auto) 10.1 (5-15) % Eos % (Auto) 1.2 (0-8) % Baso % (Auto) 1.3 H (0-1) % Immature Gran # (Auto) 0.05 10*3/UL Neut # (Auto) 9.14 10*3/UL Lymph # (Auto) 1.13 10*3/uL [place] # (Auto) 1.19 H (0.3-0.8) 10*3/UL Eos # (Auto) 0.14 10*3/UL Baso # (Auto) 0.15 10*3/UL WBC Morphology Comment See comments (NORM) Plt Morphology Comment Normal morphology (NORM) RBC Morph Comment Normal morphology (NORM) PT 12.6 H (9.7-11.4) secs INR 1.19 (0.00-5.90) N/A D-Dimer 4.90 H (0.00-0.59) mg/L Sodium 131 L (135-145) meq/L Potassium 5.0 (3.8-5.2) meq/L Chloride 100 (98-112) meq/L Carbon Dioxide 20 L (23-33) meq/L Anion Gap 11 (5-20) BUN 29 H (7-22) mg/dL Creatinine 1.4 (0.70-1.50) mg/dL Estimated GFR (>60 ml/min/1.73m(2)) BUN/Creatinine Ratio 20.71 H (6-20) Glucose 151 H (78-110) mg/dL Calculated Osmolality 280.0 (267-292) mOsm/kg Lactic Acid 1.4 (0.70-2.10) MMOL/L Calcium 9.9 (8.7-10.7) mg/dL Magnesium 2.1 (1.6-2.4) mg/dL Total Bilirubin 1.0 (0.3-1.2) mg/dL AST 52 (21-57) IU/L ALT 83 H (21-72) IU/L Alkaline Phosphatase 284 H (38-126) IU/L CK-MB (CK-2) 0.98 (0.00-5.00) NG/ML Troponin I 0.014 (< 0.040) ng/mL C-Reactive Protein 23.6 H (0.0-0.9) mg/dL NT-Pro-B Natriuret Pep 1190 H (0-125) PG/ML Total Protein 7.5 (6.1-8.0) g/dL Albumin 3.3 L (3.5-4.8) g/dL Globulin 4.2 H (2.50-4.10) g/dL Albumin/Globulin Ratio 0.70 L (1.3-2.0) mg/g TSH 2.30 (0.2700-4.2000) uIU/mL EKG Interpretation:: POSITIVE: Other (Sinus tachycardia) - Patient's Progress Pain Medication Addressed: POSITIVE: Yes Re-Examine Time: 23:53 Status: POSITIVE: Improved MDM / ED Course: Patient was examined, an IV started, blood drawn and sent to lab for studies, radiographic and EKG studies were also obtained. Findings: EKG is interpreted by me shows a sinus tachycardia. CT scan shows a large pleural effusion and cavitary lesion in his right lower lobe with possible communication with bronchitis. Further it shows decreasing pulmonary clot load. CBC shows white count of 11.45, hemoglobin of 13, hematocrit 40. D- dimer is elevated at 4.9. Troponin and creatinine kinase MB are normal. Comprehensive metabolic panel is unremarkable. Assessment: #1 pleural effusion #2 pulmonary cavitary lesion #3 pulmonary embolism Plan: Transfer to [facility] for pulmonology care. I have discussed this patient with the case coordinator Dr. Shelby who is advising no antibiotics, and with the accepting ER physician Dr. JR Stouting. Air Movement: POSITIVE: Poor Quality Measure Initiative: CP/AMI: POSITIVE: EKG Quality Measure Initiative: CAP: POSITIVE: SaO2, CXR or CT - Consult Counseled: POSITIVE: Patient, RE: Lab Results, RE: Radiology Results, RE: DX Patient Care Time - Estimated PCT Patient Care Time (In Minutes): 60 Vital Signs - Recent Vital Signs Vital Signs: Vital Signs (Last 8 hours) Temp Pulse Resp BP BP Pulse Ox 05/26/17 20:46 87 18 95 05/26/17 18:40 97.8 F 112 H 20 97/72 104/73 92 - VS Reviewed Vital Signs Reviewed: Yes Discharge Clinical Impression: Pulmonary embolism and infarction, Pleural effusion Discharge Disposition: Transferred to Tertiary Care Facility Condition: Stable Patient Instructions Given at Discharge: Pulmonary Embolism (GEN) Date Decision to Transfer to Another Facility: 05/27/17 Time Decision to Transfer to Another Facility: 00:00
[2017-05-26 19:09] LABS: BASOPHILS # (AUTO) 0.15 10*3/UL; BASOPHILS % (AUTO) 1.3 % (0-1); EOSINOPHILS # (AUTO) 0.14 10*3/UL; EOSINOPHILS % (AUTO) 1.2 % (0-8); HEMATOCRIT 40.8 % (42.0-52.0); HEMOGLOBIN 13.3 g/dL (14.0-18.0); LYMPHOCYTES # (AUTO) 1.13 10*3/uL; MEAN CORPUSCULAR HEMOGLOBIN 25.9 PG (27-31); MEAN CORPUSCULAR HGB CONC 32.6 g/dL (33-37); MEAN CORPUSCULAR VOLUME 79.5 FL (80-90); MEAN PLATELET VOLUME 9.6 FL (7.4-12.2); MONOCYTES # (AUTO) 1.19 10*3/UL (0.3-0.8); MONOCYTES % (AUTO) 10.1 % (5-15); NEUTROPHILS # (AUTO) 9.14 10*3/UL; NEUTROPHILS % (AUTO) 77.4 % (50-80); RED BLOOD COUNT 5.13 10^6/uL (4.70-6.10)
[2017-05-26 19:23] LABS: BUN/CREATININE RATIO 20.71 (6-20); CALCIUM 9.9 mg/dL (8.7-10.7); MAGNESIUM 2.1 mg/dL (1.6-2.4); SERUM ALBUMIN 3.3 g/dL (3.5-4.8)
[2017-05-26 19:33] LABS: CREATINE KINASE MB 0.98 NG/ML (0.00-5.00); TROPONIN I 0.014 ng/mL (< 0.040)
[2017-05-26 19:34] LABS: C-REACTIVE PROTEIN 23.6 mg/dL (0.0-0.9)
[2017-05-26 19:38] LABS: PLATELET MORPHOLOGY COMMENT NORMAL MORPHOLOGY (NORM); RBC MORPHOLOGY COMMENT NORMAL MORPHOLOGY (NORM); WBC MORPHOLOGY COMMENT SEE COMMENTS (NORM)
--- NOTE | 2017-05-26 20:02 | DI ---
AP CHEST X-RAY, 05/26/2017 6:45 PM : Clinical History: Shortness of breath. The patient had a recent CT angiogram of the chest performed o n 05/04/2017, that demonstrated pulmonary embolism with right lower lobe pulmonary infarct. Previous Exam: 05/04/2017. There is no acute soft tissue or bony abnormality. There is cardiomegaly without CHF. The right lower lobe infiltrate has increased in severity since the last exam and probably no also those portions of the right middle lobe. There probably is a small right pleural effusion. There is pulmonary arterial hypertension. There are no pulmonary nodules. Readin. The right lower lobe infiltrate has increased in severity and may also involve the right middle l obe. The CT scan from 05/04/2017 demonstrated a large clot in branches to the right lower lobe. The in filtrate would represent a pulmonary infarct. 2. Cardiomegaly without CHF.
[2017-05-26 20:47] VITALS: RESP 18
--- NOTE | 2017-05-26 22:44 | DI ---
CT ANGIOGRAM OF THE CHEST, 05/26/2017 7:44 PM : Clinical History: Shortness of breath in a patient with known pulmonary embolism with infarction chance valadez on 05/04/2017. Increasing D-dimer test. Previous Exam: 05/04/2017. Scans are performed from the base of the neck to the lower lung bases following IV administration of 50 mL of Isovue 300. Proprietary automated bolus tracking software was not used to verify the timing of the injection. The base of the neck and thoracic inlet are normal. There are no abnormal axillary, supraclavicular, mediastinal, or hilar nodes. The heart size is normal. Coronary artery calcifications are present in the left mainstem, the proximal and middle thirds of the LAD, and the proximal third of the left circ umflex artery. The main pulmonary artery now has an estimated dimension of 31 x 35 mm and on the prev ious scans, measurement of the pulmonary artery at the same location gave measurements of approximate ly 37 x 39 mm. This is suggestive that the patient had an acute cor pulmonale at the time of the prio r study. Clots are still visible in branches to both lower lobes but both sides show that the clots h ave decreased in extent and severity. Clots that were present in the right upper lobe as well as in t he superior segment of the right lower lobe branches have resolved. There is now a moderate right ple ural effusion. Virtually the entire right lower lobe except for the anterobasal segment is opacified consistent with infarction. There is an air-fluid level located laterally indicating development of c avity probably representing necrotic infarcted tissue that has patent bronchi to that region. This fi nding may not represent an abscess cavity unless the patient is markedly febrile. No new infarcts are present. Both adrenal glands, the spleen, and the visualized portions of the liver and pancreas are normal. READIN. There is residual clot in branches to both lower lobes but the clot burden has decreased since e last study. There has been resolution of clots to the right upper lobe and the superior segment of the right lower lobe. The pulmonary artery appears slightly smaller than before the patient probably had a component of acute cor pulmonale at the time of the prior exam. 2. The entire right lower lobe including the superior segment is involved with an infarct. A cavitar y lesion has developed in the right lower lobe and this may represent lung tissue necrosis with the c avitary lesion communicating with a patent bronchus. The other possibility would be the patient is de veloping an abscess cavity. 3. Interval development of a moderate right pleural effusion. 4. Coronary artery disease with calcifications in the LAD, left mainstem, and left circumflex artery .
[2017-05-27 01:28] VITALS: TEMP 97.1
== END 2017-05-27 00:20 | disposition short-term general hospital (02) ==
LOC: ER 18:38
DX: I26.99 Other pulmonary embolism without acute cor pulmonale (principal); J90 Pleural effusion, not elsewhere classified; R05 Cough; R07.9 Chest pain, unspecified; R06.02 Shortness of breath; R79.1 Abnormal coagulation profile; Z86.718 Personal history of other venous thrombosis and embolism; Z79.4 Long term (current) use of insulin; E11.9 Type 2 diabetes mellitus without complications; Z79.82 Long term (current) use of aspirin
CPT/HCPCS: 71010; 71275; 80053; 82553; 83605; 83735; 83880; 84443; 84484; 85025; 85379; 85610; 86140; 93005; 93010; 94640; 96361; 96374; 96375; 99284 ×2; J2270; J2405; J7030

== ENCOUNTER 2019-01-06 18:52 | Inpatient (IN) ==
--- NOTE | 2019-01-06 19:01 | PDOC ---
Fall HPI - General Chief Complaint: Fall Stated Complaint: Headache, dizziness, fall Date Seen by Provider: 01/06/19 Time Seen by Provider: 18:57 Source: POSITIVE: Patient, EMS - History of Present Illness Initial Comments: This is a well-developed, well-nourished, obese, very pleasant, 73-year-old male, who got dizzy and fell. Patient was found by the fire department and EMS to have fallen and sustained a evulsion laceration to his left forearm. He has been incontinent of urine. Patient states he's been having the pain frequently and had gotten up to go to the bathroom got dizzy and fell tonight. EMS arrived and found his blood pressure to be 230/115, glucose 155. They report wheezes and rhonchi bilaterally worse on the right than the left. He states that his has a respiratory infection of some sort. Patient denies any headache, no sore throat, he does have shortness of breath and feels like he needs to be on his CPAP. He is normally on room air but uses oxygen at night with his CPAP. He did have an episode of nausea and vomiting while being transported here. He denies any diarrhea. He does have +3 pitting edema in his lower extremities. Have you received a tetanus shot in the past 10 years?: No Body Location Affected: REPORTS: Head, Chest, Abdomen Timing: REPORTS: Abrupt Duration: 1/2 hour Severity: Severe Context of Fall: REPORTS: Became Dizzy Location of Fall: REPORTS: Home Associated Symptoms: REPORTS: Recalls Injury, Recalls Coming to ER Location of Injuries / Pain: REPORTS: Left, Forearm Any Prior Injuries Related to Current Complaint?: No - Patient Home Medications Home Medications: Home Medications RX: Gluc/MSM/C/Streetman/Manganes/Prim [Joint Support Complex Softgel] 3 cap PO QD #90 cap 10/25/15 RX: Metformin HCl 1 tab PO BID #180 tab 10/25/15 RX: Insulin Detemir [Levemir Flextouch] 28 unit SUBCUT QHS #5 unit 05/01/17 RX: Lisinopril 0.5 tab PO QD #90 tab 05/11/17 RX: Chlorthalidone 25 mg PO DAILY 08/28/18 RX: Tramadol HCl 50 mg PO Q6H PRN 08/28/18 allopurinol 300 mg tablet 150 mg PO QDAY tab 09/09/18 rivaroxaban 20 mg tablet 20 mg PO QDAY #60 ea 10/11/18 sildenafil (antihypertensive) 20 mg tablet 20 mg PO QDAY #90 tab 11/20/18 RX: Acetaminophen-Cod #3 Tablet [Tylenol with Codeine #3 (300mg/30mg) Tablet] 1 tab PO TID 01/06/19 RX: Metoprolol Tartrate 50 mg PO BID 01/06/19 RX: Vardenafil HCl 10 mg PO DAILY 01/06/19 - Patient Allergies Allergies/Adverse Reactions: Allergies Allergy/AdvReac Type Severity Reaction Status Date / Time No Known Allergies Allergy Verified 01/06/19 19:12 Past Medical History - heen HEENT History: Other (please comment) Additional HEENT History: WEARS GLASSES Cardiovascular History: Hypertension, Previous ID, DVTs, Hyperlipidemia Additional Cardiovasular History: ID prior to 2002. 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) Additional Musculoskeletal History: LEFT ANKLE FRACTURE at 6 years old Neurological History: Migraines Blood Disorders: Clotting Disorders Additional Blood Disorders History: DVT 2013 Psychiatric History: Denies History History of Sexually Transmitted Diseases: No Cancer History: Denies History History of MDRO: No History of Other Communicable Diseases: No Alcohol Use: None In the Past 12 Months, Have Used or Abuse Any Substance: None Previous Surgical History: Yes Type / Date of Surgery: NASAL TURBINATE REMOVAL, RIGHT TESTICULAR HERNIA WITH MESH REPAIR, HEART CATH WITHOUT STENTING Anesthesia Reactions: No Malignant Hyperthermia: No Significant Family History: No pertinent family hx ROS - Limitations ROS Limitations: No Limitations Constitution: REPORTS: Denies Symptoms Cardiovascular: REPORTS: Blood Pressure Problem Respiratory: REPORTS: Cough Non Productive, Shortness Of Breath, Wheezing Neurological: REPORTS: Dizziness, Other (Fall) Gastrointestinal: REPORTS: Nausea, Vomitting Endocrine: REPORTS: Denies Symptoms Musculoskeletal: REPORTS: Pedal Edema Genitourinary: REPORTS: Denies Symptoms Eyes: REPORTS: Denies Symptoms ENT: REPORTS: Denies Symptoms Skin: REPORTS: Denies Skin Symptoms Lympathic: REPORTS: Denies Lympathic Symptoms Immunologic: POSITIVE: Denies Symptoms Psychiatric: POSITIVE: Denies Psych Symptoms Fall Physical Exam - General Appearance General Appearance: POSITIVE: Alert, Cooperative, No Acute Distress - HEENT HEENT: POSITIVE: Head Inspection Nml, Eyes Inspection Nml, Ears Inspection Nml, Nose Inspection Nml, Oral/Dental Inspect. Nml, Pharynx Inspect. Nml, PERRL, EOMI - Pupil Size Pupil Size: 5 mm: Bilateral - Neck Neck: POSITIVE: Non Tender, Painless ROM, Trachea Midline, Nexus Criteria Nega tive - Respiratory / CVS Respiratory / CVS: POSITIVE: Chest Non Tender, No Ecchymosis, No Respiratory Distress, Heart Sounds Normal, Regular Rate/Rhythm, Wheezes, Rhonchi - Abdomen Abdomen: Soft: (All Quadrants), Normal Bowel Sounds: (All Quadrants), Denies Tenderness: (All Quadrants), No Splenomegaly: (All Quadrants), No Hepatomegaly: (All Quadrants), No Guarding: (All Quadrants), No Rebound: (All Quadrants), No Palpable Pulse: (All Quadrants), No Palpabale Mass: (All Quadrants), No Distention: (All Quadrants), No Rigidity: (All Quadrants) - Neuro / Psych Neuro / Psych: 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, 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 As Tested, Motor Normal, Sensation Normal, Mood Appropriate, Affect Appropriate - Skin Skin: POSITIVE: Intact, Warm, Dry, Other ( 3 pitting edema bilateral lower extremities) - Back Back: POSITIVE: Normal Inspection, No CVA Tenderness, Non Tender, Painless ROM, No Vertebral Tenderness - Extremities Extremity Assessment: Non-Tender: (ALL), Normal ROM: (ALL), No Edema: (LUE), (RUE), Normal Inspection: (RUE), No Swelling: (LUE), (RUE), Pelvis Stable: ( ALL), Normal Tendon Exam: (ALL), Ecchymosis: (LUE), Swelling: (RLE), (LLE), Laceration: (LUE) (skin tear left distal posterior forearm), Avulsion: (LUE), (RUE) (left distal) Joint Exam: POSITIVE: Joints Normal, Normal ROM, Normal Gait, Normal Weight Bearing Procedures - Laceration/Wound Repair Did patient have a laceration repair: No Fall Progress - Results Reviewed by me Xrays/CTs/US Reviewed by me: Yes Discussed with Radiologist: Yes Lab Results Reviewed by Me: Yes CBC and BMP: 01/07/19 04:10 01/07/19 04:10 Lab Results:: Laboratory Results 01/06/19 01/06/19 01/06/19 18:50 18:50 18:50 WBC 4.67 L RBC 4.74 Hgb 12.7 L Hct 39.7 L MCV 83.8 MCH 26.8 L MCHC 32.0 L RDW Std Deviation 49.4 RDW Coeff of [place] 16.4 H Plt Count 251 MPV 10.7 Immature Gran % (Auto) 0.4 Neut % (Auto) 70.7 Lymph % (Auto) 15.2 [place] % (Auto) 11.6 Eos % (Auto) 1.5 Baso % (Auto) 0.6 Immature Gran # (Auto) 0.02 Neut # (Auto) 3.30 Lymph # (Auto) 0.71 [place] # (Auto) 0.54 Eos # (Auto) 0.07 Baso # (Auto) 0.03 WBC Morphology Comment Normal morphology Plt Morphology Comment Normal morphology RBC Morph Comment Normal morphology ESR 43 H PT 11.1 INR 1.10 D-Dimer 0.58 VBG pH VBG pCO2 VBG HCO3 VBG Base Excess Sodium 135 Potassium 4.0 Chloride 104 Carbon Dioxide 21 L Anion Gap 10 BUN 21 Creatinine 1.4 BUN/Creatinine Ratio 15.00 Glucose 164 H Calculated Osmolality 286.0 Lactic Acid Calcium 8.9 Magnesium 1.8 Total Bilirubin 0.3 AST 35 ALT 15 L Alkaline Phosphatase 115 CK-MB (CK-2) Troponin I C-Reactive Protein 2.1 H NT-Pro-B Natriuret Pep Total Protein 7.4 Albumin 3.9 Globulin 3.5 Albumin/Globulin Ratio 1.10 L TSH Ur Collection Type Urine Color Urine Clarity Urine pH Ur Specific [place] Urine Protein Urine Glucose (UA) Urine Ketones Urine Occult Blood Urine Nitrate Urine Bilirubin Urine Urobilinogen Ur Leukocyte Esterase Urine RBC Urine WBC Ur Squamous Epith Cells Ur Renal Epithelial Cell Urine Crystals Urine Bacteria Urine Casts Urine Mucus Urine Trichomonas Urine Yeast Ur Culture Indicated? Serum Alcohol < 10 01/06/19 01/06/19 01/06/19 18:50 18:50 18:50 WBC RBC Hgb Hct MCV MCH MCHC RDW Std Deviation RDW Coeff of [place] Plt Count MPV Immature Gran % (Auto) Neut % (Auto) Lymph % (Auto) [place] % (Auto) Eos % (Auto) Baso % (Auto) Immature Gran # (Auto) Neut # (Auto) Lymph # (Auto) [place] # (Auto) Eos # (Auto) Baso # (Auto) WBC Morphology Comment Plt Morphology Comment RBC Morph Comment ESR PT INR D-Dimer VBG pH VBG pCO2 VBG HCO3 VBG Base Excess Sodium Potassium Chloride Carbon Dioxide Anion Gap BUN Creatinine BUN/Creatinine Ratio Glucose Calculated Osmolality Lactic Acid Calcium Magnesium Total Bilirubin AST ALT Alkaline Phosphatase CK-MB (CK-2) 0.65 Troponin I < 0.012 C-Reactive Protein NT-Pro-B Natriuret Pep 1680 H Total Protein Albumin Globulin Albumin/Globulin Ratio TSH 1.57 Ur Collection Type Urine Color Urine Clarity Urine pH Ur Specific [place] Urine Protein Urine Glucose (UA) Urine Ketones Urine Occult Blood Urine Nitrate Urine Bilirubin Urine Urobilinogen Ur Leukocyte Esterase Urine RBC Urine WBC Ur Squamous Epith Cells Ur Renal Epithelial Cell Urine Crystals Urine Bacteria Urine Casts Urine Mucus Urine Trichomonas Urine Yeast Ur Culture Indicated? Serum Alcohol 01/06/19 01/06/19 01/06/19 18:50 19:30 20:15 WBC RBC Hgb Hct MCV MCH MCHC RDW Std Deviation RDW Coeff of [place] Plt Count MPV Immature Gran % (Auto) Neut % (Auto) Lymph % (Auto) [place] % (Auto) Eos % (Auto) Baso % (Auto) Immature Gran # (Auto) Neut # (Auto) Lymph # (Auto) [place] # (Auto) Eos # (Auto) Baso # (Auto) WBC Morphology Comment Plt Morphology Comment RBC Morph Comment ESR PT INR D-Dimer VBG pH 7.46 H VBG pCO2 30 L VBG HCO3 21 L VBG Base Excess -3 L Sodium Potassium Chloride Carbon Dioxide Anion Gap BUN Creatinine BUN/Creatinine Ratio Glucose Calculated Osmolality Lactic Acid 2.9 H Calcium Magnesium Total Bilirubin AST ALT Alkaline Phosphatase CK-MB (CK-2) Troponin I C-Reactive Protein NT-Pro-B Natriuret Pep Total Protein Albumin Globulin Albumin/Globulin Ratio TSH Ur Collection Type Voided specimen Urine Color Yellow Urine Clarity Clear Urine pH 5.5 Ur Specific [place] 1.010 Urine Protein Trace Urine Glucose (UA) Negative Urine Ketones Negative Urine Occult Blood Trace-intact H Urine Nitrate Negative Urine Bilirubin Negative Urine Urobilinogen 0.2 Ur Leukocyte Esterase Negative Urine RBC 0-2 Urine WBC None Ur Squamous Epith Cells None Ur Renal Epithelial Cell None Urine Crystals None Urine Bacteria None Urine Casts None Urine Mucus Rare Urine Trichomonas None Urine Yeast None Ur Culture Indicated? Culture not set Serum Alcohol EKG Interpreted/Reviewed By Me:: Yes (sinus rhythm, 72 bpm, no ST elevation.) EKG Interpretation:: POSITIVE: Normal Sinus Rhythm, Normal Rate - Patient's Progress Pain Medication Addressed: POSITIVE: Yes Status: POSITIVE: Improved MDM / ED Course: Patient was evaluated, an IV started, blood drawn and sent to the lab for studies, chest x-ray was obtained. Findings: CBC shows white count of 4.69 with hemoglobin of 12.7, hematocrit of 39.7, platelets of 251. ESR is 43. PT/INR normal. D-dimer is normal at 0.58. HER troponin is 0.012 and CK-MB is 0.65. BNP is 1680. Magnesium is 1.8. Lactic acid is 2.9. Influenza A is positive. Assessment: #1 influenza. #2 hypoxia. #3 hypertension. Plan: Patient receives Tamiflu and is being admitted by the hospitalist Dr. Gutiérrez. - Consult Consult (If Yes, Name of Consulting MD & Time Called): Yes (Dr. Gutiérrez) Consulting MD will see pt:: POSITIVE: [facility] [place] Counseled: POSITIVE: Patient, RE: Lab Results, RE: Radiology Results, RE: DX, RE: Need for F/U Patient Care Time - Estimated PCT Patient Care Time (In Minutes): 45 Vital Signs - VS Reviewed Vital Signs Reviewed: Yes Discharge Clinical Impression: Influenza A, Hypoxia, Dizziness, Fall Discharge Disposition: Admit to Inpatient Condition: Stable Date Decision to Admit to Inpatient: 01/06/19 Time Decision to Admit to Inpatient: 20:31
[2019-01-06] MEDS ORDERED: ONDANSETRON 4 MG/2 ML VIAL IVP ONE (19:05)
[2019-01-06] MEDS ORDERED: IPRATROPIUM/ALBUTEROL SULFATE 3 ML NEB NEB ONE (19:05)
[2019-01-06] MEDS ORDERED: Sodium Chloride 0.9% 1,000 ML PRIMARY IV ONE (19:05)
[2019-01-06 19:18] LABS: BASOPHILS # (AUTO) 0.03 10*3/UL; BASOPHILS % (AUTO) 0.6 % (0-1); EOSINOPHILS # (AUTO) 0.07 10*3/UL; EOSINOPHILS % (AUTO) 1.5 % (0-8); Hematocrit [HCT] 39.7 % (42.0-52.0); Hemoglobin [HGB] 12.7 g/dL (14.0-18.0); LYMPHOCYTES # (AUTO) 0.71 10*3/uL; MEAN CORPUSCULAR HEMOGLOBIN 26.8 PG (27-31); MEAN CORPUSCULAR VOLUME 83.8 FL (80-90); MEAN PLATELET VOLUME 10.7 FL (7.4-12.2); MONOCYTES # (AUTO) 0.54 10*3/UL (0.3-0.8); MONOCYTES % (AUTO) 11.6 % (5-15); NEUTROPHILS % (AUTO) 70.7 % (50-80); RED BLOOD COUNT 4.74 10^6/uL (4.70-6.10)
[2019-01-06 19:19] LABS: PLATELET MORPHOLOGY COMMENT NORMAL MORPHOLOGY (NORM); RBC MORPHOLOGY COMMENT NORMAL MORPHOLOGY (NORM); WBC MORPHOLOGY COMMENT NORMAL MORPHOLOGY (NORM)
[2019-01-06] MEDS ORDERED: FUROSEMIDE 10 MG/1 ML - 4 ML IVP ONE (19:19)
--- NOTE | 2019-01-06 19:20 | EKG ---
[address] [place] [address] Measurements Intervals [place] Rate: 72 P: 33 ME: 199 QRS: 43 QRSD: 110 T: -3 QT: 414 QTc: 438 Interpretive Statements SINUS RHYTHM POSSIBLE INFERIOR MYOCARDIAL INFARCTION [40+ ms Q WAVE AND/OR ST/T ABNORMALITY IN II/aVF], OF INDETERMINATE AGE Compared to ECG 08/28/2018 17:29:02 Myocardial infarct finding now present Ventricular premature complex(es) no longer present Short ME interval no longer present T-wave abnormality no longer present Electronically Signed On 01-07-19 08:47:32 MDT by Lavelle Andersen MD [email or web address]
[2019-01-06 19:32] LABS: BLOOD UREA NITROGEN 21 mg/dL (7-22); SERUM ALBUMIN 3.9 g/dL (3.5-4.8)
[2019-01-06 19:36] LABS: VENOUS PH 7.46 (7.32-7.42)
[2019-01-06 20:03] LABS: Erythrocyte Sediment Rate 43 MM/HR (0-15)
[2019-01-06] MEDS ORDERED: OSELTAMIVIR PHOSPHATE 75 MG CAPSULE PO ONE (20:09)
[2019-01-06 20:30] LABS: BILIRUBIN,URINE NEGATIVE (NEG); CLARITY,URINE CLEAR (CLEAR); COLOR,URINE YELLOW (Y); GLUCOSE, URINE (UA) NEGATIVE (NEG); OCCULT BLOOD,URINE Trace-intact (NEG); PH,URINE 5.5 (5.0-8.5); PROTEIN,URINE TRACE mg/dl (NEG); UROBILINOGEN,URINE 0.2 EU/dL (0.2)
[2019-01-06 20:33] LABS: URINE SAMPLE TYPE VOIDED SPECIMEN
[2019-01-06 20:35] LABS: RBC,URINE 0-2 /hpf
--- NOTE | 2019-01-06 20:50 | DI ---
CT HEAD SCAN WITHOUT IV CONTRAST, 01/06/2019 7:05 PM : Clinical History: Fall. Previous Exam: None at this facility. Technique: Performed from the foramen magnum to vertex without IV contrast. Contrast Volume: None. 4th Ventricle: Normal. 3rd Ventricle: Moderately dilated. Lateral Ventricles: Moderately dilated. Sella: Normal size and normal pituitary gland. Cerebrum: Normal. There is no evidence of an acute intracranial hemorrhagic focus. No acute bland inf arct present. Multiple punctate periventricular white matter lucencies bilaterally extend into the wa tershed territory, consistent with small vessel ischemic disease. This amount of ischemic disease is appropriate for the patient's age. Cerebellum: Normal. No cerebellopontine angle mass. Normal cerebellar tonsillar position. Brainstem: Normal. Atrophy: Marked cerebral atrophy. Moderate cerebellar atrophy. Extracerebral Mantles/Midline Shift: No extracerebral mantle or dural lesion. No midline shift. Sinuses: Complete opacification of the maxillary and frontal sinuses and the anterior ethmoid sinuses with mucosal thickening of the sphenoid sinus. Skull: No fractures noted. There is sclerosis of the left mastoid bone consistent with chronic mastoi ditis. READIN. There is no evidence of an acute intracranial hemorrhagic focus or of an acute bland infarct. 2. Small vessel ischemic disease appropriate for the patient's age. 3. Severe cerebral and moderate cerebellar atrophy. 4. Pansinusitis. Chronic left mastoiditis.
--- NOTE | 2019-01-06 20:55 | DI ---
AP CHEST X-RAY, 01/06/2019 8:25 PM : Clinical History: Trauma. Previous Exam: 08/28/2018. Soft Tissues: No acute soft tissue abnormality. No subcutaneous emphysema. Bones: Normal. Heart: Cardiomegaly without CHF. Lungs: No infiltrates. No pneumothorax or pulmonary contusion. Effusion(s): None. Mediastinum: Normal mediastinum. Nodules: No pulmonary nodules. Readin. No pneumothorax or evidence of a pulmonary contusion. 2. Cardiomegaly without CHF.
[2019-01-06] MEDS ORDERED: ACETAMINOPHEN 325 MG TABLET PO PRN (21:33)
[2019-01-06] MEDS ORDERED: FUROSEMIDE 10 MG/1 ML - 2 ML VIAL IVP ONE (21:33)
[2019-01-06] MEDS ORDERED: CALCIUM CARBONATE 500 MG (TUMS) CHEWABLE TABLET PO PRN (21:33)
[2019-01-06] MEDS ORDERED: traMADol 50 MG TABLET PO PRN (21:33)
[2019-01-06] MEDS ORDERED: LIDOCAINE W/ SODIUM BICARB 0.5 ML SYR SUBD PRN (21:33)
[2019-01-06] MEDS ORDERED: SILDENAFIL CITRATE 20 MG PO SCH (21:33)
[2019-01-06] MEDS ORDERED: DOCUSATE 100 MG CAPSULE PO PRN (21:33)
[2019-01-06] MEDS ORDERED: ONDANSETRON 4 MG/2 ML VIAL IVP PRN (21:33)
[2019-01-06] MEDS: Insulin Detemir 300unit/3ml Flexpen SUBCUT SCH (22:40)
--- NOTE | 2019-01-06 23:12 | PDOC ---
HPI - History of Present Illness Date of Service: 01/06/19 Time of Service: 23:04 Chief Complaint: I passed out History of Present Illness: This is a very pleasant 73-year-old male with known coronary artery disease, ABDs mellitus type II, morbid obesity, chronic venous thromboembolism disease with history of PE and right lower extremity DVT, and syncopal episodes in the past who presents with sudden onset lightheadedness and dizziness and a syncopal episode tonight. He cannot be picked up by his . The ambulance brought the patient to the ER and he was found to be hypoxic. He had nausea and vomiting and a headache. A head CT scan was negative for any bleeding. The patient was found to have influenza A. He reports to me that he did get the flu vaccine this season. He states he has been coughing, has not noticed fevers, but that his has been sick. He denies any chest pain or shortness of breath. He is not normally on oxygen but uses CPAP at night. He required 2 LPM here tonight to maintain his saturations. Chest X-ray did not reveal any pneumonia. He remains on xarelto for his chronic VTE. Past Medical History Medical History: 1. Diabetes mellitus type II, no known complications. 2. Hypertension. 3. Hypercholesterolemia. 4. Osteoarthritis, primarily in the knees. 5. Morbid obesity with body mass index greater than 40 kg per meter squared. 6. History of DVT and PE. 7. History of tobacco abuse. 8. Colon Polyps in 2011, states he is getting a colonoscopy later this year. 9. prostate problems with frequent urination, anticipating prostate biopsy later this year. 10. CAD, s/p LAD stent (bare metal) in 08/2018 Surgical History: 1. Colonoscopy as mentioned. 2. Ruptured hernia on the left side (groin) with repair when he was young. 3. Nasal turbinates surgery Pertinent Family History: Negative for DVT and coronary artery disease and testicular cancer. States there is dementia in his family history. Past Social History: Smoked until age 33. for 40 years. Has 9 children. 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 Does not drink alcohol. Tobacco Use: Former Smoker In the Past 12 Months, Have Used or Abuse Any of the Following Substance: None Alcohol Use: None Medication / Allergies Home Medications: Home Medications Medication Instructions Recorded Confirmed Type Gluc/MSM/C/[place]/Prim 3 cap PO QD #90 cap 10/25/15 08/28/18 History [Joint Support Complex Softgel] Metformin HCl 1 tab PO BID #180 tab 10/25/15 01/06/19 History Insulin Detemir [Levemir Flextouch] 28 unit SUBCUT QHS #5 unit 05/01/17 01/06/19 Rx Lisinopril 0.5 tab PO QD #90 tab 05/11/17 08/28/18 Rx Chlorthalidone 25 mg PO DAILY 08/28/18 01/06/19 History Tramadol HCl 50 mg PO Q6H PRN 08/28/18 08/28/18 History allopurinol 300 mg tablet 150 mg PO QDAY tab 09/09/18 01/06/19 History rivaroxaban 20 mg tablet 20 mg PO QDAY #60 ea 10/11/18 01/06/19 Rx sildenafil (antihypertensive) 20 20 mg PO QDAY #90 tab 11/20/18 Rx mg tablet Acetaminophen-Cod #3 Tablet 1 tab PO TID 01/06/19 01/06/19 History [Tylenol with Codeine #3 (300mg/30mg) Tablet] Metoprolol Tartrate 50 mg PO BID 01/06/19 01/06/19 History Vardenafil HCl 10 mg PO DAILY 01/06/19 01/06/19 History Allergies/Adverse Reactions: Allergies Allergy/AdvReac Type Severity Reaction Status Date / Time No Known Allergies Allergy Verified 01/06/19 19:12 Review of Systems - Review of Systems All Systems: Reviewed & No Additional Complaints Except as Stated (I did a 12 point review systems and it was negative other than that discussed below and in the history of present illness.) - Genitourinary Genitourinary: REPORTS: Urgency, Other (Urinary frequency) Exam - Vitals Vital Signs: Vital Signs Temperature 99.1 F Temperature Source Oral Pulse Rate [Pulse Oximeter] 77 Pulse Rate 84 Respiratory Rate 20 Blood Pressure 178/94 Pulse Ox 94 Oxygen Flow Rate 2 Oxygen Delivery Method Nasal Cannula Height 5 ft 11 in Weight 320 lb - General General Appearance: No Acute Distress, Cooperative - Head Head Exam: Normal Inspection, Normocephalic, Atraumatic - Eye Eye Exam: POSITIVE: No Scleral Icterus - ENT ENT Exam: POSITIVE: Mucous Membranes Moist - Neck Neck Exam: Normal Inspection, No Tenderness, No Lymphadenopathy, No Thyromegaly, JVP is not Raised - Respiratory Respiratory Exam: POSITIVE: Breathing Non Labored, Normal to Percussion and Palpation, Wheezes - Cardiovascular Cardiovascular Exam: POSITIVE: RRR, No Murmur, No Clicks, No Gallops, No Rubs, No JVD - GI/Abdominal GI/Abdominal Exam: POSITIVE: Normal Bowel Sounds, Non Tender, Non Distended, Soft - Rectal Rectal Exam: POSITIVE: Deferred - External Exam: POSITIVE: Deferred Exam: POSITIVE: Deferred - Extremities Extremities Exam: POSITIVE: No Clubbing Present, No Cyanosis Present, +1 Edema - Back Back Exam: POSITIVE: No CVA Tenderness - Neurological Neurological Exam: POSITIVE: Alert, Oriented x 3, CN II-XII Intact, No Facial Droop, Speech Intact / Clear, Moves All Extremities Equally - Psychiatric Psychiatric Exam: POSITIVE: Normal Affect, Normal Mood Results - Labs CBC and BMP: 01/06/19 18:50 01/06/19 18:50 Additional Lab Results: Laboratory Results 01/06/19 01/06/19 01/06/19 18:50 18:50 18:50 WBC 4.67 L RBC 4.74 Hgb 12.7 L Hct 39.7 L MCV 83.8 MCH 26.8 L MCHC 32.0 L RDW Std Deviation 49.4 RDW Coeff of [place] 16.4 H Plt Count 251 MPV 10.7 Immature Gran % (Auto) 0.4 Neut % (Auto) 70.7 Lymph % (Auto) 15.2 [place] % (Auto) 11.6 Eos % (Auto) 1.5 Baso % (Auto) 0.6 Immature Gran # (Auto) 0.02 Neut # (Auto) 3.30 Lymph # (Auto) 0.71 [place] # (Auto) 0.54 Eos # (Auto) 0.07 Baso # (Auto) 0.03 WBC Morphology Comment Normal morphology Plt Morphology Comment Normal morphology RBC Morph Comment Normal morphology ESR 43 H PT 11.1 INR 1.10 D-Dimer 0.58 VBG pH VBG pCO2 VBG HCO3 VBG Base Excess Sodium 135 Potassium 4.0 Chloride 104 Carbon Dioxide 21 L Anion Gap 10 BUN 21 Creatinine 1.4 BUN/Creatinine Ratio 15.00 Glucose 164 H Calculated Osmolality 286.0 Lactic Acid Calcium 8.9 Magnesium 1.8 Total Bilirubin 0.3 AST 35 ALT 15 L Alkaline Phosphatase 115 CK-MB (CK-2) Troponin I C-Reactive Protein 2.1 H NT-Pro-B Natriuret Pep Total Protein 7.4 Albumin 3.9 Globulin 3.5 Albumin/Globulin Ratio 1.10 L TSH Ur Collection Type Urine Color Urine Clarity Urine pH Ur Specific [place] Urine Protein Urine Glucose (UA) Urine Ketones Urine Occult Blood Urine Nitrate Urine Bilirubin Urine Urobilinogen Ur Leukocyte Esterase Urine RBC Urine WBC Ur Squamous Epith Cells Ur Renal Epithelial Cell Urine Crystals Urine Bacteria Urine Casts Urine Mucus Urine Trichomonas Urine Yeast Ur Culture Indicated? Serum Alcohol < 10 01/06/19 01/06/19 01/06/19 18:50 18:50 18:50 WBC RBC Hgb Hct MCV MCH MCHC RDW Std Deviation RDW Coeff of [place] Plt Count MPV Immature Gran % (Auto) Neut % (Auto) Lymph % (Auto) [place] % (Auto) Eos % (Auto) Baso % (Auto) Immature Gran # (Auto) Neut # (Auto) Lymph # (Auto) [place] # (Auto) Eos # (Auto) Baso # (Auto) WBC Morphology Comment Plt Morphology Comment RBC Morph Comment ESR PT INR D-Dimer VBG pH VBG pCO2 VBG HCO3 VBG Base Excess Sodium Potassium Chloride Carbon Dioxide Anion Gap BUN Creatinine BUN/Creatinine Ratio Glucose Calculated Osmolality Lactic Acid Calcium Magnesium Total Bilirubin AST ALT Alkaline Phosphatase CK-MB (CK-2) 0.65 Troponin I < 0.012 C-Reactive Protein NT-Pro-B Natriuret Pep 1680 H Total Protein Albumin Globulin Albumin/Globulin Ratio TSH 1.57 Ur Collection Type Urine Color Urine Clarity Urine pH Ur Specific [place] Urine Protein Urine Glucose (UA) Urine Ketones Urine Occult Blood Urine Nitrate Urine Bilirubin Urine Urobilinogen Ur Leukocyte Esterase Urine RBC Urine WBC Ur Squamous Epith Cells Ur Renal Epithelial Cell Urine Crystals Urine Bacteria Urine Casts Urine Mucus Urine Trichomonas Urine Yeast Ur Culture Indicated? Serum Alcohol 01/06/19 01/06/19 01/06/19 18:50 19:30 20:15 WBC RBC Hgb Hct MCV MCH MCHC RDW Std Deviation RDW Coeff of [place] Plt Count MPV Immature Gran % (Auto) Neut % (Auto) Lymph % (Auto) [place] % (Auto) Eos % (Auto) Baso % (Auto) Immature Gran # (Auto) Neut # (Auto) Lymph # (Auto) [place] # (Auto) Eos # (Auto) Baso # (Auto) WBC Morphology Comment Plt Morphology Comment RBC Morph Comment ESR PT INR D-Dimer VBG pH 7.46 H VBG pCO2 30 L VBG HCO3 21 L VBG Base Excess -3 L Sodium Potassium Chloride Carbon Dioxide Anion Gap BUN Creatinine BUN/Creatinine Ratio Glucose Calculated Osmolality Lactic Acid 2.9 H Calcium Magnesium Total Bilirubin AST ALT Alkaline Phosphatase CK-MB (CK-2) Troponin I C-Reactive Protein NT-Pro-B Natriuret Pep Total Protein Albumin Globulin Albumin/Globulin Ratio TSH Ur Collection Type Voided specimen Urine Color Yellow Urine Clarity Clear Urine pH 5.5 Ur Specific [place] 1.010 Urine Protein Trace Urine Glucose (UA) Negative Urine Ketones Negative Urine Occult Blood Trace-intact H Urine Nitrate Negative Urine Bilirubin Negative Urine Urobilinogen 0.2 Ur Leukocyte Esterase Negative Urine RBC 0-2 Urine WBC None Ur Squamous Epith Cells None Ur Renal Epithelial Cell None Urine Crystals None Urine Bacteria None Urine Casts None Urine Mucus Rare Urine Trichomonas None Urine Yeast None Ur Culture Indicated? Culture not set Serum Alcohol - EKG Data -: EKG Interpreted by Me Rate: Normal EKG Shows Normal: Sinus Rhythm - EKG Data EKG Interpretation: Other (Q waves are present in inferior leads, most pronounce d in lead III) - Imaging Status: Image Reviewed by Me (chest X-ray looks negative for pneumonia. head CT appears negative for bleed. radiology reports also reviewed.) Assessment and Plan - Patient Problems (1) Acute hypoxemic respiratory failure Current Visit: Yes Status: Acute Code(s): J96.01 - Acute respiratory failure with hypoxia (2) Influenza A Current Visit: Yes Status: Acute Code(s): J10.1 - Influenza due to other identified influenza virus with other respiratory manifestations (3) Syncope and collapse Current Visit: Yes Status: Acute Code(s): R55 - Syncope and collapse (4) Leg DVT (deep venous thromboembolism), chronic Current Visit: Yes Status: Acute Code(s): I82.509 - Chronic embolism and thrombosis of unspecified deep veins of unspecified lower extremity Qualifiers: Laterality: right Qualified Code(s): I82.501 - Chronic embolism and thrombosis of unspecified deep veins of right lower extremity (5) Hypertension Current Visit: Yes Status: Acute Code(s): I10 - Essential (primary) hypertension Qualifiers: Hypertension type: essential hypertension Qualified Code(s): I10 - Essential (primary) hypertension (6) Coronary artery disease Current Visit: Yes Status: Acute Code(s): I25.10 - Atherosclerotic heart disease of [place] coronary artery without angina pectoris Qualifiers: Coronary Disease-Associated Artery/Lesion type: [place] artery [place] vs. transplanted heart: [place] heart Associated angina: without angina Qualified Code(s): I25.10 - Atherosclerotic heart disease of [place] coronary artery without angina pectoris (7) Type II diabetes mellitus Current Visit: Yes Status: Chronic Code(s): E11.9 - Type 2 diabetes mellitus without complications Qualifiers: Diabetes mellitus extermination inspector insulin use: with detention use Diabetes mellitus complication status: without complication Qualified Code(s): E11.9 - Type 2 diabetes mellitus without complications; Z79.4 - USP (current) use of insulin - Assessment / Plan Additional Assessment/Plan Details: admit the patient place on tamiflu and provide supportive care with oxygen as necessary, breathing therapies as necessary insulin sliding scale and blood sugar checks ECHO tomorrow if possible (possible heart failure) I think syncope related to hypoxia and flu, but question heart failure as well. full code continue xarelto plan discussed with patient and he agrees.
[2019-01-07 04:48] LABS: BASOPHILS # (AUTO) 0.02 10*3/UL; BASOPHILS % (AUTO) 0.5 % (0-1); EOSINOPHILS # (AUTO) 0.01 10*3/UL; EOSINOPHILS % (AUTO) 0.3 % (0-8); Hematocrit [HCT] 38.8 % (42.0-52.0); Hemoglobin [HGB] 12.3 g/dL (14.0-18.0); LYMPHOCYTES # (AUTO) 0.76 10*3/uL; MEAN CORPUSCULAR HEMOGLOBIN 26.5 PG (27-31); MEAN CORPUSCULAR HGB CONC 31.7 g/dL (33-37); MEAN CORPUSCULAR VOLUME 83.6 FL (80-90); MEAN PLATELET VOLUME 11.1 FL (7.4-12.2); MONOCYTES % (AUTO) 10.4 % (5-15); NEUTROPHILS # (AUTO) 2.63 10*3/UL; NEUTROPHILS % (AUTO) 68.5 % (50-80); RED BLOOD COUNT 4.64 10^6/uL (4.70-6.10)
[2019-01-07 04:54] LABS: PLATELET MORPHOLOGY COMMENT NORMAL MORPHOLOGY (NORM); RBC MORPHOLOGY COMMENT NORMAL MORPHOLOGY (NORM); WBC MORPHOLOGY COMMENT NORMAL MORPHOLOGY (NORM)
[2019-01-07 05:00] LABS: BLOOD UREA NITROGEN 20 mg/dL (7-22); BUN/CREATININE RATIO 13.33 (6-20)
[2019-01-07] MEDS: ALBUTEROL SULFATE 2.5 MG/3 ML NEB PRN (06:53)
[2019-01-07] MEDS: LISINOPRIL 20 MG TABLET PO SCH (08:26)
[2019-01-07] MEDS: Metoprolol TARTRATE Tab 50 MG TAB PO SCH ×2 (08:26→20:27)
[2019-01-07] MEDS: OSELTAMIVIR PHOSPHATE 75 MG CAPSULE PO SCH ×2 (08:26→20:27)
[2019-01-07] MEDS: ALLOPURINOL 300 MG TABLET PO SCH (08:26)
[2019-01-07] MEDS ORDERED: POTASSIUM CHLORIDE 20 MEQ TAB PO ONE (09:29)
[2019-01-07] MEDS: VARDENAFIL HCL PO SCH (09:39)
[2019-01-07] MEDS ORDERED: FUROSEMIDE 20 MG TABLET PO ONE (16:52)
[2019-01-07] MEDS ORDERED: Potassium Chloride Tab 10 MEQ TAB PO ONE (16:53)
--- NOTE | 2019-01-07 16:57 | PDOC(PROG) ---
Date of Service: 01/07/19 Time of Service: 16:54 Interval History: Patient seen and evaluated earlier today. No chest pain. Feels better overall. No shortness of breath. Still hypoxic and requiring oxygen. No nausea and no vomiting Objective : Data - Labs CBC and BMP: 01/07/19 04:10 01/07/19 04:10 Objective : Exam - General General Appearance: No Acute Distress, Cooperative Additional General Exam Details: Vital Signs - Last Taken Temperature 98.3 F 01/07/19 16:49 Pulse Rate 56 L 01/07/19 16:49 Respiratory Rate 20 01/07/19 16:49 Blood Pressure 141/80 01/07/19 16:49 Pulse Ox 97 01/07/19 16:49 - Eye Eye Exam: No Scleral Icterus - ENT ENT Exam: Mucous Membranes Moist - Neck Neck Exam: JVP is not Raised - Respiratory Respiratory Exam: Breathing Non Labored, Coarse Breath Sounds - Cardiovascular Cardiovascular Exam: RRR, No Murmur, No Clicks, No Gallops, No Rubs, No JVD - GI/Abdominal GI/Abdominal Exam: Normal Bowel Sounds, Non Tender, Non Distended, Soft - Extremities Extremities Exam: No Clubbing Present, No Edema Present, No Cyanosis Present Additional Extremities Exam Details: Thickening of lower extremities consistent with venous stasis - Neurological Neurological Exam: Alert, Oriented x 3, Normal Gait, No Facial Droop, Speech I ntact / Clear, Moves All Extremities Equally Assessment and Plan - Patient Problems (1) Acute hypoxemic respiratory failure Current Visit: Yes Status: Acute Code(s): J96.01 - Acute respiratory failure with hypoxia (2) Influenza A Current Visit: Yes Status: Acute Code(s): J10.1 - Influenza due to other identified influenza virus with other respiratory manifestations (3) Syncope and collapse Current Visit: Yes Status: Resolved Code(s): R55 - Syncope and collapse (4) Leg DVT (deep venous thromboembolism), chronic Current Visit: Yes Status: Acute Code(s): I82.509 - Chronic embolism and thrombosis of unspecified deep veins of unspecified lower extremity Qualifiers: Laterality: right Qualified Code(s): I82.501 - Chronic embolism and thrombosis of unspecified deep veins of right lower extremity (5) Hypertension Current Visit: Yes Status: Acute Code(s): I10 - Essential (primary) hypertension Qualifiers: Hypertension type: essential hypertension Qualified Code(s): I10 - Essential (primary) hypertension (6) Coronary artery disease Current Visit: Yes Status: Acute Code(s): I25.10 - Atherosclerotic heart disease of [place] coronary artery without angina pectoris Qualifiers: Coronary Disease-Associated Artery/Lesion type: [place] artery [place] vs. transplanted heart: [place] heart Associated angina: without angina Qualified Code(s): I25.10 - Atherosclerotic heart disease of [place] coronary artery without angina pectoris (7) Type II diabetes mellitus Current Visit: Yes Status: Chronic Code(s): E11.9 - Type 2 diabetes mellitus without complications Qualifiers: Diabetes mellitus [facility] insulin use: with termite technician use Diabetes mellitus complication status: without complication Qualified Code(s): E11.9 - Type 2 diabetes mellitus without complications; Z79.4 - ferry terminal agent (current) use of insulin (8) Congestive heart failure Current Visit: Yes Status: Acute Comment: I got echocardiogram preliminary results back. Discussed with cardiology. Ejection fraction 45-50%, dilated ascending aorta of 4.4 cm, no major valvular dysfunction. Had some LVH. Some minor dilation of the left ventricle Code(s): I50.9 - Heart failure, unspecified Qualifiers: Heart failure type: systolic Heart failure chronicity: acute on chronic Qualified Code(s): I50.23 - Acute on chronic systolic (congestive) heart failure - Assessment / Plan Additional Assessment/Plan Details: Overall, this is a patient with hypoxia in the setting of an influenza infection. Continue Tamiflu and oxygen therapy and supportive care. Has some mild congestive heart failure. Adding Lasix. Will check labs in a.m. Add potassium and replace potassium as it was 3.5. We'll keep potassium months since her adding by mouth Lasix. He has minimal edema, but has significant thickening of skin consistent with chronic venous stasis.
[2019-01-07] MEDS: Rivaroxaban Tab 10 MG TAB PO SCH (17:28)
[2019-01-07] MEDS ORDERED: Loperamide Tab 2 MG TABLET PO PRN (19:43)
[2019-01-07] MEDS: Insulin Detemir 300unit/3ml Flexpen SUBCUT SCH (20:28)
[2019-01-08 05:37] LABS: BLOOD UREA NITROGEN 25 mg/dL (7-22)
[2019-01-08] MEDS ORDERED: FUROSEMIDE 20 MG TABLET PO SCH (07:00)
[2019-01-08] MEDS: Potassium Chloride Tab 10 MEQ TAB PO SCH (09:28)
[2019-01-08] MEDS: Metoprolol TARTRATE Tab 50 MG TAB PO SCH ×2 (09:28→20:09)
[2019-01-08] MEDS: OSELTAMIVIR PHOSPHATE 75 MG CAPSULE PO SCH (09:28)
[2019-01-08] MEDS: ALLOPURINOL 300 MG TABLET PO SCH (09:28)
[2019-01-08] MEDS: LISINOPRIL 20 MG TABLET PO SCH (09:28)
[2019-01-08] MEDS: VARDENAFIL HCL PO SCH (09:29)
[2019-01-08] MEDS: Sodium Chloride 0.9% 1,000 ML PRIMARY IV SCH ×2 (14:39→21:01)
--- NOTE | 2019-01-08 14:50 | PDOC(PROG) ---
Date of Service: 01/08/19 Time of Service: 14:45 Interval History: Cough is a little better. No chest pains. Feels some abdominal discomfort with cough, but no vomiting. Reports his oxygen saturation is been between 88-91% since getting back from a shower Objective : Data - Labs CBC and BMP: 01/07/19 04:10 01/08/19 04:56 Objective : Exam - General General Appearance: No Acute Distress, Cooperative Additional General Exam Details: Vital Signs - Last Taken Temperature 97.9 F 01/08/19 13:00 Pulse Rate 54 L 01/08/19 13:00 Respiratory Rate 25 H 01/08/19 13:00 Blood Pressure 133/76 01/08/19 13:00 Pulse Ox 92 01/08/19 13:00 - Eye Eye Exam: No Scleral Icterus - ENT ENT Exam: Mucous Membranes Moist - Neck Neck Exam: JVP is not Raised - Respiratory Respiratory Exam: Breathing Non Labored, Wheezes - Cardiovascular Cardiovascular Exam: RRR, No Murmur, No Clicks, No Gallops, No Rubs, No JVD - GI/Abdominal GI/Abdominal Exam: Normal Bowel Sounds, Non Tender, Non Distended, Soft - Extremities Extremities Exam: No Clubbing Present, No Edema Present, No Cyanosis Present - Neurological Neurological Exam: Alert, Oriented x 3, No Facial Droop, Speech Intact / Clear, Moves All Extremities Equally Assessment and Plan - Patient Problems (1) Influenza A Current Visit: Yes Status: Acute Code(s): J10.1 - Influenza due to other identified influenza virus with other respiratory manifestations (2) Syncope and collapse Current Visit: Yes Status: Resolved Code(s): R55 - Syncope and collapse (3) Leg DVT (deep venous thromboembolism), chronic Current Visit: Yes Status: Acute Code(s): I82.509 - Chronic embolism and thrombosis of unspecified deep veins of unspecified lower extremity Qualifiers: Laterality: right Qualified Code(s): I82.501 - Chronic embolism and thrombosis of unspecified deep veins of right lower extremity (4) Hypertension Current Visit: Yes Status: Acute Code(s): I10 - Essential (primary) hypertension Qualifiers: Hypertension type: essential hypertension Qualified Code(s): I10 - Essential (primary) hypertension (5) Coronary artery disease Current Visit: Yes Status: Acute Code(s): I25.10 - Atherosclerotic heart disease of [place] coronary artery without angina pectoris Qualifiers: Coronary Disease-Associated Artery/Lesion type: [place] artery [place] vs. transplanted heart: [place] heart Associated angina: without angina Qualified Code(s): I25.10 - Atherosclerotic heart disease of [place] coronary artery without angina pectoris (6) Type II diabetes mellitus Current Visit: Yes Status: Chronic Code(s): E11.9 - Type 2 diabetes mellitus without complications Qualifiers: Diabetes mellitus intermediate frame tender insulin use: with mcfp use Diabetes mellitus complication status: without complication Qualified Code(s): E11.9 - Type 2 diabetes mellitus without complications; Z79.4 - longterm (current) use of insulin (7) Congestive heart failure Current Visit: Yes Status: Acute Code(s): I50.9 - Heart failure, unspecified Qualifiers: Heart failure type: systolic Heart failure chronicity: acute on chronic Qualified Code(s): I50.23 - Acute on chronic systolic (congestive) heart failure (8) Acute hypoxemic respiratory failure Current Visit: Yes Status: Acute Code(s): J96.01 - Acute respiratory failure with hypoxia - Assessment / Plan Additional Assessment/Plan Details: Overall, patient is improving. Symptoms are improving. Oxygenation seems to be improving throughout the day, although he was still requiring oxygen earlier and I ordered a CT scan to see if there could be any underlying pneumonias. I could not do this with contrast due to increasing creatinine. There appears be some haziness on my view of the basis of this study, which could be early infiltrates, but I'm waiting for the radiology report. I will reduce Tamiflu to 30 mg twice a day Give IV fluids and stop lisinopril and stop Lasix. It is clear that the patient will not be able to tolerate diuresis very well or afterload reduction. Check labs in a.m. Await CT report and possibly start antibiotics. However, with oxygenation imp roving this is more likely atelectasis than secondary pneumonia. Again, await for repeat
--- NOTE | 2019-01-08 15:25 | DI ---
CT CHEST SCAN WITHOUT IV CONTRAST, 01/08/2019 1:07 PM : Clinical History: Hypoxia. Respiratory failure. Previous Exam: 05/26/2017. Technique: From base of neck to lung bases without IV contrast. Non-MIPS and MIPS sagittal/coronal im ages generated. IV Contrast: None. Base of Neck: Normal. Nodes: Normal axillary, supraclavicular, mediastinal, and hilar lymph nodes. Heart: Normal. Calcifications are present in the proximal and middle thirds of the LAD and the left c ircumflex artery. Aorta: The ascending aorta measures 43 x 45 mm in AP and transverse dimensions. The descending aorta is ectatic and tortuous. Pulmonary Arteries: Normal non-contrast appearance. There is pulmonary hypertension. Lungs: No infiltrates. Effusion(s): None. Nodules: 2 separate 2-3 mm noncalcified nodules are present in the posterior segment of the right upp er lobe, and 2 separate similar lesions in the right lower lobe. A single similar lesion is in the snell perior segment of the lingula. Bony Structures: Blastic metastatic lesions are present virtually all of the ribs and clavicles bilat erally ranging in size between 2 mm up to 10 mm. The distal gladiolus portion of the sternum this has a large metastatic lesion with smaller lesions in the manubrium. There is an "ivory" vertebrae at T5 consistent with metastatic disease in virtually every vertebral body in the majority of the spinous processes have small metastatic foci. These metastatic foci are consistent with prostate carcinoma. Limited Upper Abdomen: Normal adrenal glands, spleen, and visualized portions of the liver and pancre as. READIN. There is no acute infiltrate or effusion or other significant abnormality to explain the patient' s acute respiratory failure. 2. Diffuse metastatic blastic disease consistent with metastatic prostate carcinoma. 3. Coronary artery disease with calcifications in the LAD and left circumflex artery and with an asc ending aortic aneurysm measuring 43 x 45 mm in AP and transverse dimensions. 4. Pulmonary arterial hypertension.
[2019-01-08] MEDS: Rivaroxaban Tab 10 MG TAB PO SCH (17:05)
[2019-01-08] MEDS: ALBUTEROL SULFATE 2.5 MG/3 ML NEB PRN (18:53)
[2019-01-08] MEDS: Insulin Detemir 300unit/3ml Flexpen SUBCUT SCH (20:09)
[2019-01-08] MEDS: OSELTAMIVIR PHOSPHATE 6 MG/1 ML -60 ML ORAL SUSP PO SCH (20:09)
[2019-01-08] MEDS ORDERED: OSELTAMIVIR PHOSPHATE 75 MG CAPSULE PO SCH (21:00)
[2019-01-09 04:21] LABS: BASOPHILS # (AUTO) 0.02 10*3/UL; BASOPHILS % (AUTO) 0.6 % (0-1); EOSINOPHILS # (AUTO) 0.23 10*3/UL; EOSINOPHILS % (AUTO) 6.4 % (0-8); Hemoglobin [HGB] 12.7 g/dL (14.0-18.0); LYMPHOCYTES # (AUTO) 1.13 10*3/uL; MEAN CORPUSCULAR HEMOGLOBIN 26.5 PG (27-31); MEAN CORPUSCULAR VOLUME 85.4 FL (80-90); MEAN PLATELET VOLUME 9.5 FL (7.4-12.2); MONOCYTES # (AUTO) 0.45 10*3/UL (0.3-0.8); MONOCYTES % (AUTO) 12.6 % (5-15); NEUTROPHILS # (AUTO) 1.73 10*3/UL; NEUTROPHILS % (AUTO) 48.4 % (50-80); PLATELET MORPHOLOGY COMMENT NORMAL MORPHOLOGY (NORM); RBC MORPHOLOGY COMMENT NORMAL MORPHOLOGY (NORM); WBC MORPHOLOGY COMMENT NORMAL MORPHOLOGY (NORM)
[2019-01-09 04:33] LABS: BLOOD UREA NITROGEN 30 mg/dL (7-22); BUN/CREATININE RATIO 17.64 (6-20)
[2019-01-09] MEDS: Sodium Chloride 0.9% 1,000 ML PRIMARY IV SCH ×3 (05:12→23:54)
[2019-01-09] MEDS: OSELTAMIVIR PHOSPHATE 6 MG/1 ML -60 ML ORAL SUSP PO SCH ×2 (09:09→20:16)
[2019-01-09] MEDS: Metoprolol TARTRATE Tab 50 MG TAB PO SCH ×2 (09:09→20:16)
[2019-01-09] MEDS: Potassium Chloride Tab 10 MEQ TAB PO SCH (09:09)
[2019-01-09] MEDS: ALLOPURINOL 300 MG TABLET PO SCH (09:10)
[2019-01-09] MEDS: VARDENAFIL HCL PO SCH (10:20)
--- NOTE | 2019-01-09 13:44 | PDOC(PROG) ---
Date of Service: 01/09/19 Time of Service: 13:37 Interval History: Continues to improve from shortness of breath and cough standpoint. Now on room air oxygen. No chest pain. No nausea or vomiting. Objective : Data - Labs CBC and BMP: 01/09/19 04:17 01/09/19 04:17 Additional Lab Results: 01/09/19 04:17 Magnesium 2.0 Objective : Exam - General General Appearance: No Acute Distress, Cooperative Additional General Exam Details: Vital Signs - Last Taken Temperature 97.7 F 01/09/19 12:39 Pulse Rate 50 L 01/09/19 12:39 Respiratory Rate 23 01/09/19 12:39 Blood Pressure 143/80 01/09/19 12:39 Pulse Ox 92 01/09/19 12:39 - Eye Eye Exam: No Scleral Icterus - ENT ENT Exam: Mucous Membranes Moist - Neck Neck Exam: JVP is not Raised - Respiratory Respiratory Exam: Clear to Auscultation - Bilaterally, Breathing Non Labored - Cardiovascular Cardiovascular Exam: No Murmur, No Clicks, No Gallops, No Rubs, Bradycardia, No JVD - GI/Abdominal GI/Abdominal Exam: Normal Bowel Sounds, Non Tender, Non Distended, Soft - Extremities Extremities Exam: No Clubbing Present, No Edema Present, No Cyanosis Present - Neurological Neurological Exam: Alert, Oriented x 3, No Facial Droop, Speech Intact / Clear, Moves All Extremities Equally Assessment and Plan - Patient Problems (1) Acute renal failure Current Visit: Yes Status: Acute Code(s): N17.9 - Acute kidney failure, unspecified Qualifiers: Acute renal failure type: unspecified Qualified Code(s): N17.9 - Acute kidney failure, unspecified (2) Prostate cancer metastatic to bone Current Visit: Yes Status: Acute Code(s): C61 - Malignant neoplasm of prostate; C79.51 - Secondary malignant neoplasm of bone (3) Influenza A Current Visit: Yes Status: Acute Code(s): J10.1 - Influenza due to other identified influenza virus with other respiratory manifestations (4) Syncope and collapse Current Visit: Yes Status: Resolved Code(s): R55 - Syncope and collapse (5) Leg DVT (deep venous thromboembolism), chronic Current Visit: Yes Status: Acute Code(s): I82.509 - Chronic embolism and thrombosis of unspecified deep veins of unspecified lower extremity Qualifiers: Laterality: right Qualified Code(s): I82.501 - Chronic embolism and thrombosis of unspecified deep veins of right lower extremity (6) Hypertension Current Visit: Yes Status: Acute Code(s): I10 - Essential (primary) hypertension Qualifiers: Hypertension type: essential hypertension Qualified Code(s): I10 - Essential (primary) hypertension (7) Coronary artery disease Current Visit: Yes Status: Acute Code(s): I25.10 - Atherosclerotic heart disease of [place] coronary artery without angina pectoris Qualifiers: Coronary Disease-Associated Artery/Lesion type: [place] artery [place] vs. transplanted heart: [place] heart Associated angina: without angina Qualified Code(s): I25.10 - Atherosclerotic heart disease of [place] coronary artery wi thout angina pectoris (8) Type II diabetes mellitus Current Visit: Yes Status: Chronic Code(s): E11.9 - Type 2 diabetes mellitus without complications Qualifiers: Diabetes mellitus senior oracle pl sql developer insulin use: with intermediate use Diabetes mellitus complication status: without complication Qualified Code(s): E11.9 - Type 2 diabetes mellitus without complications; Z79.4 - phys therapist (current) use of insulin (9) Congestive heart failure Current Visit: Yes Status: Acute Code(s): I50.9 - Heart failure, unspecified Qualifiers: Heart failure type: systolic Heart failure chronicity: acute on chronic Qualified Code(s): I50.23 - Acute on chronic systolic (congestive) heart failure (10) Acute hypoxemic respiratory failure Current Visit: Yes Status: Resolved Code(s): J96.01 - Acute respiratory failure with hypoxia - Assessment / Plan Additional Assessment/Plan Details: The patient had developed acute renal failure, probably related to a combination of Lasix, lisinopril and possible overdiuresis in the setting of his congestive heart failure. It is clear he will not tolerate these medicines very well. I would like to continue to do IV fluids and check a creatinine again tomorrow. Encouraging that the creatinine did not increase. However, on the CT scan, it was noted that there were probable bony metastatic lesions consistent with potential spread of prostate cancer. I discussed this earlier with the patient on admission and reviewed his history. The patient had multiple considerations for biopsying the prostate in the past, but his elevated PSAs at those times were attributed to prostatitis, and other genitourinary tract infections, and further complicated by an acute venous thromboembolism event taken off of Xarelto while awaiting a biopsy in the past. Given all this, creatinine remains elevated tomorrow, we may need to consider imaging the abdomen to make sure there is no obstructive uropathy that is noted. This will be difficult however to do without contrast. I spoke to patient about his CAT scan findings and potential metastatic lesions. Ultimately, we will discuss with urology tomorrow, and see whether or not we should move his prostate biopsy up. The patient has no bone pain. Finish a total of 5 days of Tamiflu but renally dose now. I was informed by nursing that last night, the patient received high-dose of Tamiflu. We will disclose to the patient. Labs in a.m. Complex admission, incidental finding of metastatic prostate lesions and development of acute renal failure complicating disposition.
[2019-01-09 15:21] LABS: BLOOD UREA NITROGEN 27 mg/dL (7-22)
--- NOTE | 2019-01-09 17:25 | DI ---
WHOLE BODY BONE SCAN, 01/09/2019 11:00 AM : Clinical History: Metastatic prostate cancer. Previous Exam: None at this facility. Dose: 34 mCi of [id number]. Technique: 3 hours after IV injection of [id number], whole body anterior and posterior images are obtai valery. Spot films of the knees and ankles are also performed. Kidneys: Both kidneys are visualized. Axial Skeleton: Focal hot spots are seen in the skull, the T5 vertebral body, and the left T12 pedicl e. Possible ulcer seen in virtually every rib. Focal increased activity is also present in the right iliac crest and symphysis pubis. Appendicular Skeleton: Focal hot spots are seen in the clavicles, sternum, scapulae and suspected in the proximal right radius. Hot spots are present in both proximal femurs. The focal hot spots in the knees and ankles are felt to be related to arthritis. Reading: There is diffuse metastatic disease involving the skull, thoracic spine, ribs, right proximal radius, right iliac crest, symphysis pubis, and femurs. Involvement is also noted bilaterally in the clavicl es, the scapulae, as well as the sternum. These areas of increased activity indicate diffuse metastat ic disease.
[2019-01-09] MEDS: Rivaroxaban Tab 10 MG TAB PO SCH (17:41)
[2019-01-09] MEDS: Insulin Detemir 300unit/3ml Flexpen SUBCUT SCH (20:17)
[2019-01-10 05:03] LABS: BLOOD UREA NITROGEN 26 mg/dL (7-22); BUN/CREATININE RATIO 18.57 (6-20)
[2019-01-10] MEDS: Potassium Chloride Tab 10 MEQ TAB PO SCH (08:36)
[2019-01-10] MEDS: OSELTAMIVIR PHOSPHATE 6 MG/1 ML -60 ML ORAL SUSP PO SCH (08:36)
[2019-01-10] MEDS: Sodium Chloride 0.9% 1,000 ML PRIMARY IV SCH (08:37)
[2019-01-10] MEDS: ALLOPURINOL 300 MG TABLET PO SCH (08:37)
[2019-01-10] MEDS: Metoprolol TARTRATE Tab 50 MG TAB PO SCH (08:37)
[2019-01-10] MEDS: VARDENAFIL HCL PO SCH (09:16)
[2019-01-10 11:17] VITALS: BP 163/93; RESP 18; TEMP 97.6; O2SAT 93
--- NOTE | 2019-01-10 12:14 | DCSUMMARY ---
Hospitalization Summary Admit Date: 01/06/2019 Discharge Date: 01/10/19 Primary Diagnosis:: acute hypoxemic respiratory failure, resolved Secondary Diagnosis:: Influenza A Metastatic prostate cancer Hospital Course: This very pleasant 73-year-old male that was admitted in the setting of acute hypoxemic respiratory failure in the setting of influenza A. He did receive a flu vaccine. The patient was admitted to the hospital, placed on breathing therapies and oxygen. I held off on steroids as there is really no proof that steroids help influenza A infections. The patient recovered in terms of his hypoxia, but he had some symptoms of congestive heart failure with some intermittent wheezing, and some signs of lower extremity edema as well. An echocardiogram was done. The echocardiogram showed an ejection fraction of 45-50%. We tried lisinopril and Lasix at fairly low doses, but the patient's creatinine increased on these medications and they had to be stopped. IV fluids were replaced, and renal failure resolved and the patient is back at his baseline creatinine of 1.4. Because of his persistent hypoxia, got a chest CT scan that ended up showing no evidence for pneumonia or explanation for her persistent hypoxia, but int erestingly we saw several blastic metastatic lesions in the thoracic spine, ribs, and sternum. A bone scan confirmed this with widespread metastatic disease. The PSA is 15.2. Presumably this is prostate cancer with metastasis. Interestingly the patient was already scheduled for a prostate biopsy in February, and we were able to arrange a faster follow-up for the patient and he will see his urologist on 01/14/2019. It is not clear at this point as the workup was not done yet, but he might be a candidate for Lupron therapy he notes to me that he's had several urologic problems including prostatitis, epididymal infections, and he has an inability to urinate without the use of Cialis daily. Given the improvement in kidney function, resolution of symptoms of flu although he does have a cough that is persistent, but hypoxia has resolved, and kidney function returning to normal, the patient today states that he has no chest pain, no shortness breath, no nausea or vomiting and he would like to go home. Assessment and Plan: 1. As per discharge assessments noted 2. Disposition: Patient is discharged home. 3. Condition on discharge, stable and improved. 4. Diet: regular diet 5. Activities: resume normal activities 6. Follow-Up: 1. Dr. Pitt in 1 week 2. 7. Medications at the Time of Discharge: Home Medications Medication Instructions Recorded Confirmed Type Metformin HCl 1 tab PO BID #180 tab 10/25/15 01/06/19 History Insulin Detemir [Levemir Flextouch] 28 unit SUBCUT QHS #5 unit 05/01/17 01/06/19 Rx Chlorthalidone 25 mg PO DAILY 08/28/18 01/06/19 History allopurinol 300 mg tablet 150 mg PO QDAY tab 09/09/18 01/06/19 History rivaroxaban 20 mg tablet 20 mg PO QDAY #60 ea 10/11/18 01/06/19 Rx Acetaminophen-Cod #3 Tablet 1 tab PO TID 01/06/19 01/06/19 History [Tylenol with Codeine #3 (300mg/30mg) Tablet] Metoprolol Tartrate 50 mg PO BID 01/06/19 01/06/19 History Vardenafil HCl 10 mg PO DAILY 01/06/19 01/06/19 History Fluticasone Nasal Steward 0.05% 1 spray SHANTI DAILY PRN 01/10/19 01/10/19 History [Flonase Nasal [place] 0.05%] 8. Time, care, counseling and coordination of care for this discharge is greater than 30 minutes. Exam - Vitals Vital Signs: Vital Signs Temperature 97.6 F Temperature Source Temporal Artery Scan Pulse Rate [Apical] 44 Pulse Rate [Pulse Oximeter] 56 Pulse Rate 54 Respiratory Rate 18 Blood Pressure [Right Arm] 163/93 Blood Pressure 178/94 Pulse Ox 93 Oxygen Delivery Method Room Air Height 5 ft 11 in Weight 301 lb 6.4 oz - General General Appearance: No Acute Distress, Cooperative - Eye Eye Exam: POSITIVE: No Scleral Icterus - ENT ENT Exam: POSITIVE: Mucous Membranes Moist - Neck Neck Exam: JVP is not Raised - Respiratory Respiratory Exam: POSITIVE: Clear to Auscultation - Bilaterally, Breathing Non Labored - Cardiovascular Cardiovascular Exam: POSITIVE: No Murmur, No Clicks, No Gallops, No Rubs, Bradycardia, No JVD - GI/Abdominal GI/Abdominal Exam: POSITIVE: Normal Bowel Sounds, Non Tender, Non Distended, Soft - Extremities Extremities Exam: POSITIVE: No Clubbing Present, No Edema Present, No Cyanosis Present - Neurological Neurological Exam: POSITIVE: Alert, Oriented x 3, No Facial Droop, Speech Intact / Clear, Moves All Extremities Equally Data Peritnent Studies: 01/06/19 01/06/19 01/06/19 18:50 18:50 18:50 WBC Hgb Hct Plt Count ESR 43 H PT 11.1 INR 1.10 D-Dimer 0.58 VBG pH VBG pCO2 VBG HCO3 VBG Base Excess Sodium Potassium Chloride Carbon Dioxide Anion Gap BUN Creatinine BUN/Creatinine Ratio Glucose Calculated Osmolality Lactic Acid Calcium 8.9 Magnesium 1.8 Total Bilirubin 0.3 AST 35 ALT 15 L Alkaline Phosphatase 115 CK-MB (CK-2) Troponin I C-Reactive Protein 2.1 H NT-Pro-B Natriuret Pep Total Protein 7.4 Albumin 3.9 Globulin 3.5 PSA Screen TSH 01/06/19 01/06/19 01/06/19 18:50 18:50 18:50 WBC Hgb Hct Plt Count ESR PT INR D-Dimer VBG pH VBG pCO2 VBG HCO3 VBG Base Excess Sodium Potassium Chloride Carbon Dioxide Anion Gap BUN Creatinine BUN/Creatinine Ratio Glucose Calculated Osmolality Lactic Acid Calcium Magnesium Total Bilirubin AST ALT Alkaline Phosphatase CK-MB (CK-2) 0.65 Troponin I < 0.012 C-Reactive Protein NT-Pro-B Natriuret Pep 1680 H Total Protein Albumin Globulin PSA Screen TSH 1.57 01/06/19 01/06/19 01/06/19 18:50 19:00 19:30 WBC Hgb Hct Plt Count ESR PT INR D-Dimer VBG pH 7.46 H VBG pCO2 30 L VBG HCO3 21 L VBG Base Excess -3 L Sodium Potassium Chloride Carbon Dioxide Anion Gap BUN Creatinine BUN/Creatinine Ratio Glucose Calculated Osmolality Lactic Acid 2.9 H Calcium Magnesium Total Bilirubin AST ALT Alkaline Phosphatase CK-MB (CK-2) Troponin I C-Reactive Protein NT-Pro-B Natriuret Pep Total Protein Albumin Globulin PSA Screen 15.2 H TSH 01/08/19 01/09/19 01/10/19 04:56 04:17 04:31 WBC 3.57 L Hgb 12.7 L Hct 41.0 L Plt Count 238 ESR PT INR D-Dimer VBG pH VBG pCO2 VBG HCO3 VBG Base Excess Sodium 137 Potassium 4.7 Chloride 106 Carbon Dioxide 24 Anion Gap 7 BUN 26 H Creatinine 1.4 BUN/Creatinine Ratio 18.57 Glucose 112 H Calculated Osmolality 289.0 Lactic Acid Calcium 8.8 Magnesium Total Bilirubin AST ALT Alkaline Phosphatase CK-MB (CK-2) Troponin I C-Reactive Protein NT-Pro-B Natriuret Pep 1290 H Total Protein Albumin Globulin PSA Screen TSH Procedures: [address] [facility] [place] [address] PH: DD: [phone] FAX: [phone] ~DIAGNOSTIC IMAGING REPORT~ Patient: Parth Vera : 1945 Sex: M Age: 73 Exam Name: OK Bone/Jnt Image Whole Body Exam Date: 01/09/19 Report # : [id number] CPT Code: 06655 EMR/MR #: [id number] Ordering: ROGER MARSH Admiting: ROGER MARSH DO Primary: GM LINDQUIST Attending: ROGER MARSH DO Signed WHOLE BODY BONE SCAN, 01/09/2019 11:00 AM : Clinical History: Metastatic prostate cancer. Previous Exam: None at this facility. Dose: 34 mCi of [id number]. Technique: 3 hours after IV injection of [id number], whole body anterior and posterior images are obtained. Spot films of the knees and ankles are also performed. Kidneys: Both kidneys are visualized. Axial Skeleton: Focal hot spots are seen in the skull, the T5 vertebral body, and the left T12 pedicle. Possible ulcer seen in virtually every rib. Focal increased activity is also present in the right iliac crest and symphysis pubis. Appendicular Skeleton: Focal hot spots are seen in the clavicles, sternum, scapulae and suspected in the proximal right radius. Hot spots are present in both proximal femurs. The focal hot spots in the knees and ankles are felt to be related to arthritis. Reading: There is diffuse metastatic disease involving the skull, thoracic spine, ribs, right proximal radius, right iliac crest, symphysis pubis, and femurs. Involvement is also noted bilaterally in the clavicles, the scapulae, as well as the sternum. These areas of increased activity indicate diffuse metastatic disease. Dictated By: 01/09/19 1512 JOANA AKINS MD. Signed By: 01/09/19 1729 JOANA AKINS MD. [address] [facility] [place] [address] PH: DD: [phone] FAX: [phone] ~DIAGNOSTIC IMAGING REPORT~ Patient: Parth Vera : 1945 Sex: M Age: 73 Exam Name: CT Chest WO Contrast Exam Date: 01/08/19 Report # : [id number] CPT Code: 72497 EMR/MR #: [id number] Ordering: ROGER MARSH Admiting: ROGER MARSH DO Primary: GM LINDQUIST Attending: ROGER MARSH DO Signed CT CHEST SCAN WITHOUT IV CONTRAST, 01/08/2019 1:07 PM : Clinical History: Hypoxia. Respiratory failure. Previous Exam: 05/26/2017. Technique: From base of neck to lung bases without IV contrast. Non-MIPS and MIPS sagittal/coronal images generated. IV Contrast: None. Base of Neck: Normal. Nodes: Normal axillary, supraclavicular, mediastinal, and hilar lymph nodes. Heart: Normal. Calcifications are present in the proximal and middle thirds of the LAD and the left circumflex artery. Aorta: The ascending aorta measures 43 x 45 mm in AP and transverse dimensions. The descending aorta is ectatic and tortuous. Pulmonary Arteries: Normal non-contrast appearance. There is pulmonary hypertension. Lungs: No infiltrates. Effusion(s): None. Nodules: 2 separate 2-3 mm noncalcified nodules are present in the posterior segment of the right upper lobe, and 2 separate similar lesions in the right lower lobe. A single similar lesion is in the superior segment of the lingula. Bony Structures: Blastic metastatic lesions are present virtually all of the ribs and clavicles bilaterally ranging in size between 2 mm up to 10 mm. The distal gladiolus portion of the sternum this has a large metastatic lesion with smaller lesions in the manubrium. There is an "ivory" vertebrae at T5 consistent with metastatic disease in virtually every vertebral body in the majority of the spinous processes have small metastatic foci. These metastatic foci are consistent with prostate carcinoma. Limited Upper Abdomen: Normal adrenal glands, spleen, and visualized portions of the liver and pancreas. READIN. There is no acute infiltrate or effusion or other significant abnormality to explain the patient's acute respiratory failure. 2. Diffuse metastatic blastic disease consistent with metastatic prostate carcinoma. 3. Coronary artery disease with calcifications in the LAD and left circumflex artery and with an ascending aortic aneurysm measuring 43 x 45 mm in AP and transverse dimensions. 4. Pulmonary arterial hypertension. Dictated By: 01/08/19 1410 JOANA AKINS MD. Signed By: 01/08/19 1523 JOANA AKINS MD. [address] [facility] [place] [address] PH: DD: [phone] FAX: [phone] ~DIAGNOSTIC IMAGING REPORT~ Patient: Parth Vera : 1945 Sex: M Age: 73 Exam Name: CT Head WO Contrast Exam Date: 01/06/19 Report # : [id number] CPT Code: 21076 EMR/MR #: [id number] Ordering: Devyn Tyson Admiting: Primary: NONE,NONE Attending: Signed CT HEAD SCAN WITHOUT IV CONTRAST, 01/06/2019 7:05 PM : Clinical History: Fall. Previous Exam: None at this facility. Technique: Performed from the foramen magnum to vertex without IV contrast. Contrast Volume: None. 4th Ventricle: Normal. 3rd Ventricle: Moderately dilated. Lateral Ventricles: Moderately dilated. Sella: Normal size and normal pituitary gland. Cerebrum: Normal. There is no evidence of an acute intracranial hemorrhagic focus. No acute bland infarct present. Multiple punctate periventricular white matter lucencies bilaterally extend into the watershed territory, consistent with small vessel ischemic disease. This amount of ischemic disease is appropriate for the patient's age. Cerebellum: Normal. No cerebellopontine angle mass. Normal cerebellar tonsillar position. Brainstem: Normal. Atrophy: Marked cerebral atrophy. Moderate cerebellar atrophy. Extracerebral Mantles/Midline Shift: No extracerebral mantle or dural lesion. No midline shift. Sinuses: Complete opacification of the maxillary and frontal sinuses and the anterior ethmoid sinuses with mucosal thickening of the sphenoid sinus. Skull: No fractures noted. There is sclerosis of the left mastoid bone consistent with chronic mastoiditis. READIN. There is no evidence of an acute intracranial hemorrhagic focus or of an acute bland infarct. 2. Small vessel ischemic disease appropriate for the patient's age. 3. Severe cerebral and moderate cerebellar atrophy. 4. Pansinusitis. Chronic left mastoiditis. Dictated By: 01/06/192041 JOANA AKINS MD. Signed By: 01/06/192049 JOANA AKINS MD. Patient Problems - Patient Problem List (1) Acute hypoxemic respiratory failure Current Visit: Yes Status: Acute Code(s): J96.01 - Acute respiratory failure with hypoxia Category: Medical (2) Influenza A Current Visit: Yes Status: Acute Code(s): J10.1 - Influenza due to other identified influenza virus with other respiratory manifestations Category: Medical (3) Prostate cancer metastatic to bone Current Visit: Yes Status: Acute Code(s): C61 - Malignant neoplasm of prostate; C79.51 - Secondary malignant neoplasm of bone Category: Medical (4) Syncope and collapse Current Visit: Yes Status: Resolved Code(s): R55 - Syncope and collapse Category: Medical (5) Leg DVT (deep venous thromboembolism), chronic Current Visit: Yes Status: Acute Code(s): I82.509 - Chronic embolism and thrombosis of unspecified deep veins of unspecified lower extremity Qualifiers: Laterality: right Qualified Code(s): I82.501 - Chronic embolism and thrombosis of unspecified deep veins of right lower extremity Category: Medical (6) Hypertension Current Visit: Yes Status: Acute Comment: I have added enalapril and also low-dose beta raymundo Code(s): I10 - Essential (primary) hypertension Qualifiers: Hypertension type: essential hypertension Qualified Code(s): I10 - Essential (primary) hypertension Category: Medical (7) Coronary artery disease Current Visit: Yes Status: Acute Comment: Medical management for now. Arrange appointment with cardiology. Eventually may need a heart catheterization. Code(s): I25.10 - Atherosclerotic heart disease of [place] coronary artery without angina pectoris Qualifiers: Coronary Disease-Associated Artery/Lesion type: [place] artery [place] vs. transplanted heart: [place] heart Associated angina: without angina Qualified Code(s): I25.10 - Atherosclerotic heart disease of [place] coronary artery without angina pectoris Category: Medical (8) Type II diabetes mellitus Current Visit: Yes Status: Chronic Code(s): E11.9 - Type 2 diabetes mellitus without complications Qualifiers: Diabetes mellitus skilled nursing insulin use: with skilled nursing use Diabetes mellitus complication status: without complication Qualified Code(s): E11.9 - Type 2 diabetes mellitus without complications; Z79.4 - [facility] (current) use of insulin Category: Medical (9) Congestive heart failure Current Visit: Yes Status: Acute Code(s): I50.9 - Heart failure, unspecified Qualifiers: Heart failure type: systolic Heart failure chronicity: acute on chronic Qualified Code(s): I50.23 - Acute on chronic systolic (congestive) heart failure Category: Medical (10) Acute renal failure Current Visit: Yes Status: Resolved Code(s): N17.9 - Acute kidney failure, unspecified Qualifiers: Acute renal failure type: unspecified Qualified Code(s): N17.9 - Acute kidney failure, unspecified Category: Medical
== END 2019-01-10 13:20 | disposition home or self-care (01) | DRG 189 ==
LOC: ER 18:52 → MED/SURG 21:00
PROVIDERS: ADMIT Family Medicine; ATTEND Family Medicine